=== PATIENT | female | born 1965 | race Caucasian/White ===

== ENCOUNTER 2020-07-20 13:49 | Outpatient (REF) | payer OTHER, SELFPAY | END 2020-07-20 13:50 | disposition home or self-care (01) | LOC: HO.LAB 13:49 | PROVIDERS: Visit Provider Internal Medicine | DX: Z20.828 Contact with and (suspected) exposure to other viral communicable diseases (principal) | CPT/HCPCS: C9803; U0003 ==

== ENCOUNTER 2021-05-30 07:15 | Outpatient (REF) | payer OTHER, SELFPAY | END 2021-05-30 07:16 | disposition home or self-care (01) | LOC: HO.HOSX 07:15 | PROVIDERS: Visit Provider Physician Assistant | DX: Z13.89 Encounter for screening for other disorder (principal) ==

== ENCOUNTER 2021-06-12 08:10 | Outpatient (REF) | payer OTHER, SELFPAY ==
--- NOTE | ~2021-06-12 | XR_ITS ---
EXAMINATION: XR KNEE, RIGHT XR KNEE AP STANDING CLINICAL INFORMATION: Pain. COMPARISON: None TECHNIQUE: Lateral and axial views of the right knee are obtained. AP bilateral standing view of the knees was obtained. FINDINGS: The lateral, medial and patellofemoral joint space compartments of the right knee are well-maintained. There is very mild tricompartment peripheral osteophyte formation. No fracture, dislocation or joint effusion is seen. There is no foreign body. On the frontal view, the lateral and medial joint space compartments of the left knee are well-maintained. A sclerotic, well marginated bone island is noted within the left tibial metaphysis. No significant varus or valgus configuration is seen bilaterally. XR/XR knee RT 2V IMPRESSION: There is very mild tricompartment osteoarthritic change of the right knee. No right knee fracture, dislocation or joint effusion is seen.
--- NOTE | ~2021-06-12 | XR_ITS ---
EXAMINATION: XR KNEE, RIGHT XR KNEE AP STANDING CLINICAL INFORMATION: Pain. COMPARISON: None TECHNIQUE: Lateral and axial views of the right knee are obtained. AP bilateral standing view of the knees was obtained. FINDINGS: The lateral, medial and patellofemoral joint space compartments of the right knee are well-maintained. There is very mild tricompartment peripheral osteophyte formation. No fracture, dislocation or joint effusion is seen. There is no foreign body. On the frontal view, the lateral and medial joint space compartments of the left knee are well-maintained. A sclerotic, well marginated bone island is noted within the left tibial metaphysis. No significant varus or valgus configuration is seen bilaterally. XR/XR knee standing BI IMPRESSION: There is very mild tricompartment osteoarthritic change of the right knee. No right knee fracture, dislocation or joint effusion is seen.
== END 2021-06-12 08:11 | disposition home or self-care (01) ==
LOC: HO.HOSX 08:10
PROVIDERS: Visit Provider Physician Assistant
DX: M17.11 Unilateral primary osteoarthritis, right knee (principal); M25.562 Pain in left knee
CPT/HCPCS: 73560; 73565; 99202

== ENCOUNTER 2022-04-21 09:53 | Outpatient (REF) | payer OTHER, SELFPAY ==
--- NOTE | ~2022-04-21 | XR_ITS ---
EXAMINATION: XR HAND, RIGHT XR HAND, LEFT XR FOOT, RIGHT XR FOOT, LEFT CLINICAL INFORMATION: Pain in hands and feet. COMPARISON: None TECHNIQUE: 3 views each foot. 3 views each hand. FINDINGS: RIGHT HAND: There is mild loss of PIP joint space with periarticular spurring first digit. Minimal loss of PIP joint space fourth and fifth digits is noted as well. Also visualized is mild leftward DIP joint space without periarticular spurring. No bony erosive changes; no acute fracture or dislocation seen. There is bone fragment likely old styloid process fracture. LEFT HAND: Minimal loss of PIP and DIP joint space without periarticular spurring or bony erosive changes. No abnormal joint effusion seen. LEFT FOOT: The ankle mortise and subtalar joints are normal. There are small calcaneal and retrocalcaneal enthesophytes. There is also dorsal intertarsal spurring. Mild focal dorsal soft tissue swelling. No acute fracture, dislocation or subluxation seen. RIGHT FOOT: There is moderate sized calcaneal and a small retrocalcaneal enthesophyte. Minimal dorsal intertarsal spurring is seen. The ankle mortise and subtalar joints are normal. No visible acute fracture, dislocation or subluxation seen. The joint spaces are maintained normal. No soft tissue abnormality. XR/XR foot RT min 3V IMPRESSION: Mild degenerative changes PIP and DIP joints both hands with periarticular spurring first digit right hand. No bony erosive changes, fracture or soft tissue swelling. Unremarkable bilateral foot exam.
--- NOTE | ~2022-04-21 | XR_ITS ---
EXAMINATION: XR HAND, RIGHT XR HAND, LEFT XR FOOT, RIGHT XR FOOT, LEFT CLINICAL INFORMATION: Pain in hands and feet. COMPARISON: None TECHNIQUE: 3 views each foot. 3 views each hand. FINDINGS: RIGHT HAND: There is mild loss of PIP joint space with periarticular spurring first digit. Minimal loss of PIP joint space fourth and fifth digits is noted as well. Also visualized is mild leftward DIP joint space without periarticular spurring. No bony erosive changes; no acute fracture or dislocation seen. There is bone fragment likely old styloid process fracture. LEFT HAND: Minimal loss of PIP and DIP joint space without periarticular spurring or bony erosive changes. No abnormal joint effusion seen. LEFT FOOT: The ankle mortise and subtalar joints are normal. There are small calcaneal and retrocalcaneal enthesophytes. There is also dorsal intertarsal spurring. Mild focal dorsal soft tissue swelling. No acute fracture, dislocation or subluxation seen. RIGHT FOOT: There is moderate sized calcaneal and a small retrocalcaneal enthesophyte. Minimal dorsal intertarsal spurring is seen. The ankle mortise and subtalar joints are normal. No visible acute fracture, dislocation or subluxation seen. The joint spaces are maintained normal. No soft tissue abnormality. XR/XR foot LT min 3V IMPRESSION: Mild degenerative changes PIP and DIP joints both hands with periarticular spurring first digit right hand. No bony erosive changes, fracture or soft tissue swelling. Unremarkable bilateral foot exam.
--- NOTE | ~2022-04-21 | XR_ITS ---
EXAMINATION: XR HAND, RIGHT XR HAND, LEFT XR FOOT, RIGHT XR FOOT, LEFT CLINICAL INFORMATION: Pain in hands and feet. COMPARISON: None TECHNIQUE: 3 views each foot. 3 views each hand. FINDINGS: RIGHT HAND: There is mild loss of PIP joint space with periarticular spurring first digit. Minimal loss of PIP joint space fourth and fifth digits is noted as well. Also visualized is mild leftward DIP joint space without periarticular spurring. No bony erosive changes; no acute fracture or dislocation seen. There is bone fragment likely old styloid process fracture. LEFT HAND: Minimal loss of PIP and DIP joint space without periarticular spurring or bony erosive changes. No abnormal joint effusion seen. LEFT FOOT: The ankle mortise and subtalar joints are normal. There are small calcaneal and retrocalcaneal enthesophytes. There is also dorsal intertarsal spurring. Mild focal dorsal soft tissue swelling. No acute fracture, dislocation or subluxation seen. RIGHT FOOT: There is moderate sized calcaneal and a small retrocalcaneal enthesophyte. Minimal dorsal intertarsal spurring is seen. The ankle mortise and subtalar joints are normal. No visible acute fracture, dislocation or subluxation seen. The joint spaces are maintained normal. No soft tissue abnormality. XR/XR hand RT min 3V IMPRESSION: Mild degenerative changes PIP and DIP joints both hands with periarticular spurring first digit right hand. No bony erosive changes, fracture or soft tissue swelling. Unremarkable bilateral foot exam.
--- NOTE | ~2022-04-21 | XR_ITS ---
EXAMINATION: XR HAND, RIGHT XR HAND, LEFT XR FOOT, RIGHT XR FOOT, LEFT CLINICAL INFORMATION: Pain in hands and feet. COMPARISON: None TECHNIQUE: 3 views each foot. 3 views each hand. FINDINGS: RIGHT HAND: There is mild loss of PIP joint space with periarticular spurring first digit. Minimal loss of PIP joint space fourth and fifth digits is noted as well. Also visualized is mild leftward DIP joint space without periarticular spurring. No bony erosive changes; no acute fracture or dislocation seen. There is bone fragment likely old styloid process fracture. LEFT HAND: Minimal loss of PIP and DIP joint space without periarticular spurring or bony erosive changes. No abnormal joint effusion seen. LEFT FOOT: The ankle mortise and subtalar joints are normal. There are small calcaneal and retrocalcaneal enthesophytes. There is also dorsal intertarsal spurring. Mild focal dorsal soft tissue swelling. No acute fracture, dislocation or subluxation seen. RIGHT FOOT: There is moderate sized calcaneal and a small retrocalcaneal enthesophyte. Minimal dorsal intertarsal spurring is seen. The ankle mortise and subtalar joints are normal. No visible acute fracture, dislocation or subluxation seen. The joint spaces are maintained normal. No soft tissue abnormality. XR/XR hand LT min 3V IMPRESSION: Mild degenerative changes PIP and DIP joints both hands with periarticular spurring first digit right hand. No bony erosive changes, fracture or soft tissue swelling. Unremarkable bilateral foot exam.
[2022-04-21 11:11] LABS: C Reactive Protein 0.24 mg/dL (< or = 0.50); Rheumatoid Factor < 15.0 IU/mL (<15.0)
[2022-04-21 12:07] LABS: Erythrocyte Sedimentation Rate 6 MM/HR (0-20)
[2022-04-23 16:32] LABS: Cyclic Citrullinated Peptide <16 UNITS
== END 2022-04-21 09:54 | disposition home or self-care (01) ==
LOC: HO.10HDL 09:53
PROVIDERS: PCP Internal Medicine; Visit Provider Internal Medicine Rheumatology
DX: M79.641 Pain in right hand (principal); M79.642 Pain in left hand; M79.671 Pain in right foot; M79.672 Pain in left foot; M17.11 Unilateral primary osteoarthritis, right knee
CPT/HCPCS: 36415; 73130; 73630; 85652; 86140; 86200; 86431; 99202

== ENCOUNTER 2022-08-20 09:27 | Outpatient (REF) | payer OTHER, SELFPAY ==
--- NOTE | 2022-08-20 11:35 | MHC.AU.HA1 ---
Hearing Aid Evaluation Date of Visit: 08/20/22 Historical Information: Description of Hearing: Moderately-severe to severe mixed hearing loss in the left ear; Normal hearing in the right ear Summary: Marisabel reported that she has had left-sided hearing loss since about [age] years old. 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 She subsequently had a mastoidectomy and had her adenoids and tonsils removed as well. She never used a hearing aid and has learned to compensate for her hearing loss using communication strategies and environmental modifications. Marisabel is interested in pursuing a hearing aid now due to increased difficulty communicating, especially with masks which interfere with lip reading. She works at [employer] and often needs to ask her coworkers for repetition or sometimes feigns understanding of the conversation. Hearing Aid Prescription: Based on the individual?s shared listening needs, communication environments, dexterity, desire for connectivity, and personal preferences, the following prescription for amplification has been made: Left ear: Make, Model, Color: Phonak Audeo P70-R Battery Size: Liability Claims Examiner/Slim Tube: Type of Earmold/Dome/CShell/SlimTip: Cshell with canal lock Plan of Care: Patient is not interested in pursuing new amplification at this time. Comments: Marisabel would like to apply for financial assistance through [facility] - Gave contact information. If she qualifies for [facility], she will reschedule a hearing aid consultation to confirm the details of the prescribed hearing aid (rechargeable vs battery-powered, color, etc.) and to take an earmold impression. If she does not qualify for [facility], she will reschedule a hearing aid consultation as self-pay if she decides to pursue a hearing aid at that time. Primary Diagnosis: H90.72 Mixed HL, Unilateral, Left Ear, W/Unrestricted Contralateral Signature: Provider: Ragini Lou, [facility]
== END 2022-08-20 09:28 | disposition home or self-care (01) ==
LOC: HO.HAP 09:27
PROVIDERS: Visit Provider Otolaryngology
DX: Z13.89 Encounter for screening for other disorder (principal)

== ENCOUNTER 2022-09-03 14:40 | Outpatient (REF) | payer OTHER, SELFPAY ==
--- NOTE | ~2022-09-03 | MM_ITS ---
EXAMINATION: MM SCREENING DIGITAL BREAST TOMOSYNTHESIS, BILATERAL CLINICAL INFORMATION: Screening. Asymptomatic. The lifetime risk of breast cancer based on the Tyrer-Cuzick Model is 8.8%. COMPARISON: Mammography: December 16, 2018 and studies dating back to August 17, 2013 TECHNIQUE: Digital breast tomosynthesis is performed in both the craniocaudal and mediolateral oblique views along with computer-aided detection (CAD). Synthesized 2D images are generated from the tomosynthesis. FINDINGS: The breasts are almost entirely fatty (ACR BI-RADS breast composition Category a). There are no significant masses, abnormal calcifications, or other abnormalities. MM/MM tomosynthesis screening BI IMPRESSION: No significant changes from prior exam. ASSESSMENT: BI-RADS 1: Negative RECOMMENDATION: Routine annual mammography screening. This patient's information was entered into a reminder system with a target due date for their next mammogram.
== END 2022-09-03 14:41 | disposition home or self-care (01) ==
LOC: HO.MAMMO 14:40
PROVIDERS: PCP Internal Medicine; Visit Provider Internal Medicine
DX: Z12.31 Encounter for screening mammogram for malignant neoplasm of breast (principal)
CPT/HCPCS: 77063; 77067

== ENCOUNTER 2022-10-15 09:22 | Outpatient (REF) | payer OTHER, SELFPAY ==
[2022-10-15 12:16] LABS: Alanine Aminotransferase 22 U/L (0-31); Anion Gap 14 (12-20); Aspartate Amino Transferase 22 U/L (5-31); Blood Urea Nitrogen 14 mg/dL (9-16); Calcium 9.1 mg/dL (8.4-10.2); Carbon Dioxide 24 mmol/L (22-29); Chloride 108 mmol/L (96-108); Cholesterol 228 mg/dL; Estimated Glomerular Filt Rate > 60; Glucose Fasting 84 mg/dL (60-99); HDL Cholesterol 72 mg/dL; LDL Cholesterol Calculated 137 mg/dl; Potassium 4.4 mmol/L (3.3-5.1); Sodium 142 mmol/L (135-145); Triglycerides 95 mg/dL
[2022-10-15 13:43] LABS: Vitamin D 25-OH Total 37.1 ng/mL (>30)
== END 2022-10-15 09:23 | disposition home or self-care (01) ==
LOC: HO.HMGCLDS 09:22
PROVIDERS: Visit Provider Internal Medicine
DX: Z00.01 Encounter for general adult medical examination with abnormal findings (principal); N95.9 Unspecified menopausal and perimenopausal disorder; E78.5 Hyperlipidemia, unspecified
CPT/HCPCS: 36415; 80048; 80061; 82306; 84450; 84460

== ENCOUNTER 2023-03-31 09:28 | Outpatient (AMB) | payer OTHER, SELFPAY ==
--- NOTE | 2023-03-31 09:36 | MHC.PC.OV ---
Vital Signs 03/31/23 09:38 Height 5 ft 2 in Weight 217 lb BMI 39.7 BP 120/80 Blood Pressure Location Rt brachial Position Sitting Pulse 70 Pulse Source Pulse Oximeter Pulse Oximetry (%) 99 Oxygen Delivery Method Room Air Intake Visit Reasons: Back of right knee Cyst Intake Note: Pt is here today c/o back of Rt knee ? cyst Allergies No Known Allergies [No Known Allergies*] Allergy (Verified 09/30/23 11:52) Medication List - Last Reconciled 03/31/23 by Jaquelin Moya MD ascorbic acid (vitamin C) mg PO aspirin (Adult Aspirin Regimen) 81 mg PO DAILY cholecalciferol (vitamin D3) 25 mcg PO DAILY multivitamin 1 tab PO DAILY mutqntv-expc-bppey-oreg-capryl 100 mg-150 mg- 50 mg-150 mg caps PO DAILY Tobacco use date assessed: 03/31/23 Dental Screening Dental Screen Date: 03/31/23 Did you have a dental visit in the last 12 months?: Yes Did you have a dental problem in the last 6 months where you did not have access to dental care?: No Was dental information given to patient?: Patient has dentist HPI Back of right knee Cyst HPI Details 58-year-old lady here today complaining of a lump, which is nontender to palpation on the back of her right knee. This has been present now for the last several months and seems to be getting bigger in size. She is also complaining of progressively worsening right knee pain and has had several instances that her right knee almost gave out while walking. The patient states that she injured her right knee several years ago. . [facility] Medical History (Updated 09/30/23 @ 12:03 by Jaquelin Moya MD) Right knee pain Hyperlipidemia Palpable mass of soft tissue of knee Refused influenza vaccine Masterson's neuroma of both feet Morbid obesity Dyslipidemia Polyarthralgia Catalan's cyst of knee Menorrhagia Carpal tunnel syndrome on both sides Right inguinal hernia Cholelithiasis Varicose vein of leg Injury of muscle or tendon of left rotator cuff Deafness in left ear Foot pain, bilateral Surgical History (Updated 09/30/23 @ 11:56 by Jaquelin Moya MD) History of arthroscopy of right knee H/O hernia repair Deafness in left ear History of prior ablation treatment Hx of cholecystectomy History of tonsillectomy and adenoidectomy History of rotator cuff surgery History of carpal tunnel surgery Family History Father Bladder cancer Lung cancer Mother No problems noted. Brother No problems noted. Brother No problems noted. Son No problems noted. Daughter No problems noted. 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 1. Little interest or pleasure in doing things: not at all 2. Feeling down, depressed, or hopeless: not at all 3. Trouble falling or staying asleep, or sleeping too much: not at all 4. Feeling tired or having little energy: not at all 5. Poor appetite or overeating: not at all 6. Feeling bad about yourself - or that you are a failure or have let yourself or your family down: not at all 7. Trouble concentrating on things, such as reading the newspaper or watching television: not at all 8. Moving or speaking so slowly that other people could have noticed. Or the opposite - being so fidgety or restless that you have been moving around a lot more than usual: not at all 9. Thoughts that you would be better off or of hurting yourself in some way: not at all Total score: 0 Depression Screening Interpretation: Negative 84569 - PHQ-9 Billing: Yes Source: Developed by Drs. Brian Zamora, Alison Story, Cecilio Parker and colleagues, with an educational noemí from [employer]. Thrive Questionnaire Date Thrive assessed: 03/31/23 I am a: Patient What is your living situation today?: I have a steady place to live Within the past 12 months, did the food you bought not last and you didn't have the money to get more?: Never true Within the past 12 months, did you worry whether your food would run out before you got money to buy more?: Never true Do you have trouble paying for medicines?: No Do you have trouble getting transportation to medical appointments?: No Do you have trouble paying your heating and electricity bill?: No Do you have trouble taking care of your child, family member or friend?: No Do you have trouble with day-to-day activities such as bathing, preparing meals, shopping, managing finances, etc.?: No Are you currently unemployed and looking for a job?: No Are you interested in more education?: No AUDIT C Alcohol Use Questionnaire (AUDIT-C) 1. How often do you have a drink containing alcohol?: Never Total Score: 0 ROB-7 AMB Questionnaire ROB-7 Date ROB - 7 assessed: 03/31/23 Feeling nervous, anxious, or on edge: 0 = Not at all Not being able to stop or control worryin = Not at all Worrying too much about different things: 0 = Not at all Trouble relaxin = Not at all Being so restless that it is hard to sit still: 0 = Not at all Becoming easily annoyed or irritable: 0 = Not at all Feeling afraid as if something awful might happen: 0 = Not at all Total ROB-7 score (0-4 normal; 5-9 mild; 10-14 moderate; 15-21 severe): 0 Source: Developed by Drs. Brian Zamora, Alison Story, Cecilio Parker and colleagues, with an educational noemí from [employer]. ROB-7 Assessment Billing ROB-7 Assessment Tool: ROB-7 Assessment 43620 Review of Systems Const All systems reviewed & are unremarkable except as noted in HPI and below Physical exam (Primary Care) Vital Signs: Last Vital Signs Pulse 70 03/31/23 09:38 BP 120/80 03/31/23 09:38 Pulse Ox 99 03/31/23 09:38 Oxygen Delivery Method Room Air 03/31/23 09:38 BMI result Body Mass Index 39.7 Tobacco/Smoking Status: Tobacco use Status Tobacco use date assessed 03/31/23 03/31/23 09:39 Patient Tobacco Use Status Former Tobacco user 03/31/23 09:39 e-Cigarette/Vaping Use Never Used 03/31/23 09:39 PHQ-9: PHQ-9 Score PHQ-9: Total score 0 03/31/23 10:08 Depression Screening Interpretation: Negative Thrive Assessment: Date of Thrive Assessment Date Thrive assessed 03/31/23 03/31/23 10:09 Extrem Other: Palpable lump on posterior aspect of right knee joint, slightly tender to palpation. Assessment and Plan Assessment & Plan (1) Palpable mass of soft tissue of knee: Code(s): M79.89 - Other specified soft tissue disorders Plan: Ultrasound soft tissue of her right knee ordered. Referred to orthopedics for further evaluation management. Coding Level of Care Code Est Pt Level 3 (58486) Diagnoses Palpable mass of soft tissue of knee M79.89 Additional Codes ROB-7 Assessment Billing - ROB-7 Assessment Tool: ROB-7 Assessment 02551 ([id number])
[2023-03-31 09:38] VITALS: BP 120/80; PULSE 70; O2SAT 99; BMI 39.7
== END 2023-03-31 10:06 | disposition home or self-care (01) ==
PROVIDERS: PCP Internal Medicine; Visit Provider Internal Medicine
DX: M79.89 Other specified soft tissue disorders (principal)
CPT/HCPCS: 99213; 99499

== ENCOUNTER 2023-04-02 08:58 | Outpatient (REF) | payer OTHER, SELFPAY ==
--- NOTE | ~2023-04-02 | US_ITS ---
EXAMINATION: US SOFT TISSUES LEG, RIGHT CLINICAL INFORMATION: Firm slightly tender mass medial aspect of right posterior knee increasing in size, question cyst. COMPARISON: None. TECHNIQUE: Targeted ultrasound images were obtained by the director of search engine marketing of the area of concern as indicated by the patient along the medial posterior knee, just below the level of the popliteal fossa. Radiologist was not in attendance. Images were later provided for interpretation. FINDINGS: In the area indicated by the patient along the medial right posterior knee just below the popliteal fossa, there is an approximately 7.8 x 4.7 x 1.9 cm fluid collection with a fine septation. The 7.8 cm sagittal dimension is only an approximation due to large size of this collection. US/US extremity nonvascular gleason IMPRESSION: 7.8 cm fluid collection in the area indicated by the patient along the medial right posterior knee just below the popliteal fossa.
== END 2023-04-02 08:59 | disposition home or self-care (01) ==
LOC: HO.HMGCX 08:58
PROVIDERS: PCP Internal Medicine; Visit Provider Internal Medicine
DX: M79.89 Other specified soft tissue disorders (principal)
CPT/HCPCS: 76882

== ENCOUNTER 2023-04-22 10:12 | Outpatient (REF) | payer OTHER, SELFPAY ==
--- NOTE | ~2023-04-22 | XR_ITS ---
EXAMINATION: XR KNEE, RIGHT CLINICAL INFORMATION: Pain COMPARISON: Right knee x-rays June 12, 2021 TECHNIQUE: Three views of the right knee. FINDINGS: No fracture or dislocation. Trace suprapatellar joint effusion. Joint spaces are well-maintained. Small tricompartmental marginal osteophytes. No focal soft tissue swelling of the anterior knee. XR/XR knee RT 3V IMPRESSION: Mild degenerative changes of the right knee with trace suprapatellar joint effusion.
== END 2023-04-22 10:13 | disposition home or self-care (01) ==
LOC: HO.HOSX 10:12
PROVIDERS: Visit Provider Orthopaedic Surgery
DX: S83.241A Other tear of medial meniscus, current injury, right knee, initial encounter (principal)
CPT/HCPCS: 73562; 99212

== ENCOUNTER 2023-04-22 10:25 | Outpatient (AMB) | payer OTHER, SELFPAY ==
[2023-04-22 10:53] VITALS: BMI 39.7
--- NOTE | 2023-04-22 10:53 | MHC.OFFVIS ---
Intake Vital Signs 04/22/23 10:53 Height 5 ft 2 in Weight 217 lb BMI 39.7 Intake Visit Reasons: OV -Right Knee Pain Intake Note: Marisabel is a 57 year old female who presents today with complaints of progressively worsening right knee pain and giving way. The patient states that she injured her right knee several years ago. She twisted her knee and had acute onset of pain. Since that time her symptoms have gotten worse in spite of continued non operative treatments. She has done physical therapy for 12 weeks over the last 6 months which aggravated her pain. She has had multiple injections. The most recent injection gave her minimal relief. She has also tried Tylenol and anti-inflammatory medicines which gave her minimal relief. She states that her right knee will give out several times per day. Allergies No Known Allergies [No Known Allergies*] Allergy (Verified 03/31/23 09:47) [facility] Medical History (Updated 04/22/23 @ 12:28 by Alhaji Cohen MD) Catalan's cyst of knee Carpal tunnel syndrome on both sides Cholelithiasis Deafness in left ear Dyslipidemia Foot pain, bilateral Injury of muscle or tendon of left rotator cuff Menorrhagia Morbid obesity Masterson's neuroma of both feet Palpable mass of soft tissue of knee Polyarthralgia Refused influenza vaccine Right inguinal hernia Varicose vein of leg Surgical History (Updated 04/22/23 @ 10:58 by Edith Null CMA) Deafness in left ear H/O hernia repair History of carpal tunnel surgery History of prior ablation treatment History of rotator cuff surgery History of tonsillectomy and adenoidectomy Hx of cholecystectomy Family History Father Bladder cancer Lung cancer Mother No problems noted. Brother No problems noted. Brother No problems noted. Son No problems noted. Daughter No problems noted. 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 Cognitive needs: No Hearing needs: Yes Vision needs: Yes Physical Exam Vital Signs: BMI result Body Mass Index 39.7 Const Other: Well-nourished well-developed very friendly female awake alert and oriented x3 in no acute distress Extrem Other: Bilateral lower extremity examination shows good capillary refill, no skin lesions noted, normal sensation light touch Right knee examination shows a minimal effusion, minimal crepitus with range of motion, tenderness along her medial joint line, positive Corey's test, no instability Results Reviewed Results Reviewed: X-rays of the patient's right knee show mild diffuse joint space narrowing, no acute bony abnormalities Assessment & Plan Assessment & Plan (1) Tear of medial meniscus of right knee: Code(s): S83.241A - Other tear of medial meniscus, current injury, right knee, initial encounter Plan: Ms. Miguel presents with progressively worsening right knee pain and mechanical symptoms most likely due to a medial meniscus tear. Thus, I will send the patient for an MRI of her right knee for further evaluation. I will see her back once the MRI is completed to discuss the findings and treatment options. Feel free to call me at any time should questions regarding her orthopedic management arise. Thank you very much for asking me to see this very friendly patient. I spent 22 minutes in reviewing the patient's records and imaging studies, seeing the patient and documenting in the medical record. Orders: Orders XR knee RT 3V Today M25.561 - Pain in right knee MR knee RT wo con Today S83.241A - Other tear of medial meniscus, current injury, right knee, initial encounter Coding Level of Care Code Est Pt Level 2 (94410) Diagnoses Tear of medial meniscus of right knee S83.241A
== END 2023-04-22 11:38 | disposition home or self-care (01) ==
PROVIDERS: PCP Internal Medicine; Visit Provider Orthopaedic Surgery
DX: S83.241A Other tear of medial meniscus, current injury, right knee, initial encounter (principal)
CPT/HCPCS: 99212

== ENCOUNTER 2023-06-17 18:56 | Outpatient (REF) | payer OTHER, SELFPAY ==
--- NOTE | ~2023-06-17 | MR_ITS ---
EXAMINATION: MR KNEE WITHOUT CONTRAST, RIGHT CLINICAL INFORMATION: Right knee pain, swelling, lump/mass. Catalan's cyst. Evaluate for a medial meniscal tear. COMPARISON: Right knee radiographs dated 04/22/2023. TECHNIQUE: MRI of the knee without contrast was performed using routine sequences on a high-field scanner. FINDINGS: MENISCI: Medial Meniscus: Mild fraying of the anterior root. Degenerative intrasubstance signal within the meniscal body and posterior horn. Mild medial extrusion of the meniscal body. Lateral Meniscus: Intact LIGAMENTS: Cruciate: Intact Collateral: Intact EXTENSOR MECHANISM: Intact . ARTICULAR CARTILAGE/BONE: Patellofemoral Compartment: Patellar articular cartilage thinning. Diffuse trochlear articular cartilage thinning with areas of near full-thickness loss at the central and lateral trochlea. Small marginal osteophytes. Medial Compartment: Articular cartilage thinning with signal heterogeneity and surface irregularity. Small marginal osteophytes. Lateral Compartment: Articular cartilage signal heterogeneity with focal near full-thickness loss at the posterior weight-bearing lateral femoral condyle. Tiny marginal osteophytes. JOINT FLUID AND BURSAE: Small joint effusion and small to moderate Catalan's cyst. Loose body within the Catalan's cyst measuring up to 0.5 cm. MR/MR knee RT wo con IMPRESSION: Mild fraying of the medial meniscus anterior root with degenerative intrasubstance signal within the meniscal body and posterior horn. Mild medial extrusion of the meniscal body. Moderate patellofemoral as well as mild medial and lateral compartment osteoarthritis. Small joint effusion and small to moderate Catalan's cyst. Loose body within the Catalan's cyst measuring up to 0.5 cm.
== END 2023-06-17 18:57 | disposition home or self-care (01) ==
LOC: HO.MRI 18:56
PROVIDERS: PCP Internal Medicine; Visit Provider Orthopaedic Surgery
DX: S83.241A Other tear of medial meniscus, current injury, right knee, initial encounter (principal)
CPT/HCPCS: 73721

== ENCOUNTER 2023-06-24 11:30 | Outpatient (AMB) | payer OTHER, SELFPAY ==
[2023-06-24 11:32] VITALS: BMI 39.7
--- NOTE | 2023-06-24 11:32 | A.OFFVIS_ITS ---
Intake Vital Signs 06/24/23 11:32 Height 5 ft 2 in Weight 217 lb BMI 39.7 Intake Visit Reasons: OV-Right knee MRI review Intake Note: Marisabel is a 57 year old female who presents today with complaints of progressively worsening right knee pain and giving way. The patient states that she injured her right knee several years ago. She twisted her knee and had acute onset of pain. Since that time her symptoms have gotten worse in spite of continued non operative treatments. She has done physical therapy for 12 weeks over the last 6 months which aggravated her pain. She has had multiple injections. The most recent injection gave her minimal relief. She has also tried Tylenol and anti-inflammatory medicines which gave her minimal relief. She states that her right knee will give out several times per day. Allergies No Known Allergies [No Known Allergies*] Allergy (Verified 06/24/23 11:33) [facility], LAT[facility] Medical History (Updated 04/22/23 @ 12:28 by Alhaji Cohen MD) Palpable mass of soft tissue of knee Refused influenza vaccine Masterson's neuroma of both feet Morbid obesity Dyslipidemia Polyarthralgia Catalan's cyst of knee Menorrhagia Carpal tunnel syndrome on both sides Right inguinal hernia Cholelithiasis Varicose vein of leg Injury of muscle or tendon of left rotator cuff Deafness in left ear Foot pain, bilateral Surgical History (Updated 04/22/23 @ 10:58 by Edith Null CMA) H/O hernia repair Deafness in left ear History of prior ablation treatment Hx of cholecystectomy History of tonsillectomy and adenoidectomy History of rotator cuff surgery History of carpal tunnel surgery Family History Father Bladder cancer Lung cancer Mother No problems noted. Brother No problems noted. Brother No problems noted. Son No problems noted. Daughter No problems noted. 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 Cognitive needs: No Hearing needs: Yes Vision needs: Yes Physical Exam Vital Signs: BMI result Body Mass Index 39.7 Const Other: Well-nourished well-developed very friendly female awake alert and oriented x3 in no acute distress Extrem Other: Bilateral lower extremity examination shows good capillary refill, no skin lesions noted, normal sensation light touch Right knee examination shows a mild effusion, minimal crepitus with range of motion, tenderness along her medial and lateral joint lines, positive Corey's test, no instability Results Reviewed Results Reviewed: X-rays of the patient's right knee show mild diffuse joint space narrowing, no acute bony abnormalities MRI of the patient's right knee shows mild diffuse degenerative changes, a tear of the medial meniscus, possible tearing of the lateral meniscus Assessment & Plan Assessment & Plan (1) Tear of medial meniscus of right knee: Code(s): S83.241A - Other tear of medial meniscus, current injury, right knee, initial encounter Plan: Ms. Miguel presents with progressively worsening right knee pain and mechanical symptoms due to a tear of her medial meniscus and possible tearing of her lateral meniscus. I had a lengthy discussion with the patient regarding the treatment options. At this point she has failed continued non operative treatments. The risks and benefits of right knee arthroscopic surgery were discussed at length with the patient. The patient wishes to proceed with surgery. Surgery will most likely involve right knee diagnostic arthroscopy with partial medial meniscectomy and possible lateral meniscectomy. The patient does understand that she may not get 100% relief of her symptoms depending on the severity of her degenerative changes. The patient will contact my office to pick a surgery date. She will be given a prescription for pain medicine at the time of her surgery. She will follow-up as instructed. Feel free to call me at any time should questions regarding her orthopedic management arise. I spent 22 minutes in reviewing the patient's records and imaging studies, seeing the patient and documenting in the medical record. Coding Level of Care Code Est Pt Level 2 (72047) Diagnoses Tear of medial meniscus of right knee S83.241A
== END 2023-06-24 12:02 | disposition home or self-care (01) ==
PROVIDERS: PCP Internal Medicine; Visit Provider Orthopaedic Surgery
DX: S83.241A Other tear of medial meniscus, current injury, right knee, initial encounter (principal)
CPT/HCPCS: 99212

== ENCOUNTER → 2023-06-24 11:30 | Outpatient (BNVA) | payer OTHER, SELFPAY | PROVIDERS: PCP Internal Medicine; Visit Provider Orthopaedic Surgery | DX: S83.241A Other tear of medial meniscus, current injury, right knee, initial encounter (principal) | CPT/HCPCS: 99212 ==

== ENCOUNTER 2023-08-07 09:31 | Day surgery (SDC) | payer OTHER, SELFPAY ==
[2023-08-05 08:05] VITALS: BMI 39.7
--- NOTE | 2023-08-06 09:06 | P.CONAN_ITS ---
Documented by User: Bessy Burks NP 08/06/23 09:06 HPI - Anesthesia Eval Consult details Narrative: 57yo F for Right Knee Arthroscopy partial medial meniscectomy, possible lateral meniscectomy PMFSH Active Problems Active Problems: All Active Problems (Updated 04/22/23 @ 12:28 by Alhaji Cohen MD) Tear of medial meniscus of right knee (Acute) Right knee pain (Acute) Palpable mass of soft tissue of knee (Acute) Refused influenza vaccine (Acute) Masterson's neuroma of both feet (Acute) Morbid obesity (Acute) Dyslipidemia (Acute) Bilateral hand pain (Acute) Polyarthralgia (Acute) Tricompartment osteoarthritis of right knee (Acute) Deafness in left ear (Acute) Past Medical History Medical History (Updated 04/22/23 @ 12:28 by Alhaji Cohen MD) Palpable mass of soft tissue of knee Refused influenza vaccine Masterson's neuroma of both feet Morbid obesity Dyslipidemia Polyarthralgia Catalan's cyst of knee Menorrhagia Carpal tunnel syndrome on both sides Right inguinal hernia Cholelithiasis Varicose vein of leg Injury of muscle or tendon of left rotator cuff Deafness in left ear Foot pain, bilateral Family History Family History Father Bladder cancer Lung cancer Mother No problems noted. Brother No problems noted. Brother No problems noted. Son No problems noted. Daughter No problems noted. 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 Cognitive needs: No Hearing needs: Yes Vision needs: Yes Meds Allergies Allergy/AdvReac Type Severity Reaction Status Date / Time No Known Allergies Allergy Verified 08/07/23 09:40 [No Known Allergies*] Active Medications: Current Medications Cefazolin Sodium/Dextrose (Ancef) 2 gm in 50 mls @ 100 mls/hr IV PREOP ONE Stop: 08/07/23 05:21 Home Medications Medication Instructions Recorded Confirmed Last Taken Type ascorbic acid (vitamin C) 500 mg 500 mg PO DAILY 06/20/20 08/07/23 Unknown History capsule aspirin 81 mg tablet,delayed 81 mg PO DAILY 06/20/20 08/07/23 07/31/23 History release (Adult Aspirin Regimen) cholecalciferol (vitamin D3) 25 25 mcg PO DAILY 06/20/20 08/07/23 Unknown History mcg (1,000 unit) capsule multivitamin 1 tab PO DAILY 06/20/20 08/07/23 Unknown History tumeric 100 mg-sajan 150 mg-olive 1 cap PO DAILY 04/21/22 08/07/23 Unknown History 50 mg-oreg 150 mg-caprylate capsule Exam Height,Weight and Vital Signs: Height 5 ft 2 in Weight 98.43 kg Assessment and Plan Assessment Anesthesia Assessment: Chart Reviewed Documented by User: Yo Mace MD 08/07/23 09:49 [facility] Past Medical History Medical History (Updated 04/22/23 @ 12:28 by Alhaji Cohen MD) Palpable mass of soft tissue of knee Refused influenza vaccine Masterson's neuroma of both feet Morbid obesity Dyslipidemia Polyarthralgia Catalan's cyst of knee Menorrhagia Carpal tunnel syndrome on both sides Right inguinal hernia Cholelithiasis Varicose vein of leg Injury of muscle or tendon of left rotator cuff Deafness in left ear Foot pain, bilateral Family History Family History Father Bladder cancer Lung cancer Mother No problems noted. Brother No problems noted. Brother No problems noted. Son No problems noted. Daughter No problems noted. Family history of problems with anesthesia: No 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 Cognitive needs: No Hearing needs: Yes Vision needs: Yes Meds Allergies Allergy/AdvReac Type Severity Reaction Status Date / Time No Known Allergies Allergy Verified 08/07/23 09:40 [No Known Allergies*] Home Medications Medication Instructions Recorded Confirmed Last Taken Type ascorbic acid (vitamin C) 500 mg 500 mg PO DAILY 06/20/20 08/07/23 Unknown History capsule aspirin 81 mg tablet,delayed 81 mg PO DAILY 06/20/20 08/07/23 07/31/23 History release (Adult Aspirin Regimen) cholecalciferol (vitamin D3) 25 25 mcg PO DAILY 06/20/20 08/07/23 Unknown History mcg (1,000 unit) capsule multivitamin 1 tab PO DAILY 06/20/20 08/07/23 Unknown History tumeric 100 mg-sajan 150 mg-olive 1 cap PO DAILY 04/21/22 08/07/23 Unknown History 50 mg-oreg 150 mg-caprylate capsule Exam Airway Mallampati Class: II TM Dist: >3cm Neck ROM: Limited Heart: rrr Lungs: cta Assessment and Plan Assessment Anesthesia Assessment: Anesthesia Plan Discussed Final Anesthetic Review Family History of Problems with Anesthesia: No NPO: Yes ASA Class: III Final Preanesthetic Review: No Changes in Pt Med Stat, Meds/Allgs Chart Reviewed, Consent Obtained/Reviewed and Anes Risks/Benef Reviewed Patient Risk: Intermediate Procedure Risk: Intermediate Anesthetic Plan Anesthetic Plan: GA and Agree w/ Assess. and Plan Disposition: Standard PACU
[2023-08-07] VITALS (11 sets, daily range): BP systolic 110–124; BP diastolic 62–71; PULSE 53–68; RESP 16–18; TEMP 36.1–36.6; O2SAT 98–100; BMI 41.2
[2023-08-07] MEDS: Lactated Ringers 1,000 ML 100 ML IVCONT (10:17)
--- NOTE | 2023-08-07 11:41 | P.BOP_ITS ---
Brief Operative Note Date of Service: 08/07/23 Pre-op diagnosis: Right knee medial meniscus tear, right knee degenerative joint disease Post-op diagnosis: same Procedure: Right knee diagnostic arthroscopy with right knee arthroscopic partial medial meniscectomy, right knee arthroscopic chondroplasty of the undersurface of the patella, right knee arthroscopic plica excision Implants: none Surgeon: Alhaji Cohen MD Anesthesia: GLMA Was an Optician Manager used for this Procedure?: No Estimated blood loss (mL): 10 Pathology: none sent Condition: stable Disposition: PACU
--- NOTE | 2023-08-07 11:42 | W.PM.OPN ---
Operative Note Operative Note Date of Service: 08/07/23 Narrative: After the patient was identified as Marisabel Miguel and their right knee was initialed by myself they were brought to the operating room where general anesthesia was induced by the anesthesiologist in routine fashion. The patient was given 2 g of IV Ancef for infection prophylaxis. A formal time-out was completed. The patient's right lower extremity was prepped and draped in sterile fashion. Marcaine with epinephrine was injected into the planned incision sites as well as their left knee joint. A # 11 scalpel blade was used to make an anterolateral portal 1 cm proximal to the joint line and 1 cm lateral to the patellar tendon. Blunt trocar technique was used into the suprapatellar pouch with the knee in extension. Diagnostic arthroscopy showed multiple bands of thickened plica which would be excised at the end of the procedure. There were no loose bodies or abnormalities found in either the medial or lateral gutters. There were diffuse grades 1 and 2 degenerative changes of the undersurface of the patella as well as grades 1 and 2 degenerative changes of the trochlear groove. The patient's knee was flexed to 45 degrees and a valgus force was placed upon it. The medial compartment was entered. An anteromedial portal was made 1 cm proximal to the joint line and 1 cm medial to the patellar tendon. Probing of the medial meniscus showed a radial tear of the anerior horn. A partial medial meniscectomy was performed using the arthroscopic shaver. Following the partial meniscectomy the remainder of the meniscus tissue was stable. There were diffuse grade 1 degenerative changes of the medial femoral condyle as well as diffuse grade 1 degenerative changes of the medial tibial plateau. The patient's knee was then placed into a neutral position. There was no injury to the anterior cruciate ligament. The patient's knee was then placed into the figure of 4 position and the lateral compartment was entered. There were minimal degenerative changes of the lateral femoral condyle and lateral tibial plateau. There was no evidence of lateral meniscus tearing. The patient's knee was once again brought into extension and the suprapatellar pouch was entered. The arthroscopic shaver and the ArthroCare Wand were used to excise the thickened bands of plica. The undersurface of the patella was then made smooth using the arthroscopic shaver. The articular surface of the trochlear groove was already smooth so no chondroplasty was indicated. The knee joint was irrigated and then drained. All arthroscopic instruments were removed. The 2 portals were closed with 3-0 nylon interrupted suture. The knee joint was injected with Marcaine. Dry sterile dressing and Philippe bandages were placed over the patient's knee. The patient was woken and expand the operating room. They were transferred to the recovery room in stable condition.
[2023-08-07] MEDS: fentaNYL citrate/PF 100 MCG/2 ML VIAL 25 MCG IVPUSH (11:58)
[2023-08-07] MEDS: cefTRIAXone sodium 1 GM in 0.9 % Sodium Chloride 50 ML IV (12:01)
[2023-08-07] MEDS: oxyCODONE HCl Immed Release 5 MG TABLET PO (12:21)
== END 2023-08-07 13:34 | disposition home or self-care (01) ==
PROVIDERS: PCP Internal Medicine; Visit Provider Orthopaedic Surgery
PROC: (CPT 29870; principal; 2023-08-07 11:00)
DX: S83.241A Other tear of medial meniscus, current injury, right knee, initial encounter (principal); M25.361 Other instability, right knee; M17.11 Unilateral primary osteoarthritis, right knee; M67.51 Plica syndrome, right knee; X50.1XXA Overexertion from prolonged static or awkward postures, initial encounter; Y92.9 Unspecified place or not applicable; Y93.9 Activity, unspecified; Y99.8 Other external cause status; E66.01 Morbid (severe) obesity due to excess calories; Z68.39 Body mass index [BMI] 39.0-39.9, adult; E78.5 Hyperlipidemia, unspecified; Z87.891 Personal history of nicotine dependence; Z98.890 Other specified postprocedural states
CPT/HCPCS: 29881; J0131; J0171; J0690; J0696; J1100; J1885; J2405; J2704; J2795; J3010

== ENCOUNTER → 2023-08-07 09:31 | Outpatient (BNV) | payer OTHER, SELFPAY | PROVIDERS: PCP Internal Medicine; Visit Provider Orthopaedic Surgery | DX: S83.231A Complex tear of medial meniscus, current injury, right knee, initial encounter (principal); M17.11 Unilateral primary osteoarthritis, right knee | CPT/HCPCS: 29881 ==

== ENCOUNTER 2023-08-20 14:19 | Outpatient (AMB) | payer OTHER, SELFPAY ==
--- NOTE | 2023-08-20 14:28 | A.OFFVIS_ITS ---
Intake Intake Visit Reasons: PO R Knee 08/07 Intake Note: Marisabel a 58 year old female presents today for a post operative right knee , DOS 08/07/23 . Patient reports she is doing well, states very mild discomfort here and there. Allergies No Known Allergies [No Known Allergies*] Allergy (Verified 08/20/23 14:31) HPI PO R Knee 08/07 HPI Details 58-year-old female who returns to the [facility] today for post-op right knee , 08/07/[address] Cohen. She states she has occasional minimal pain in her knee and is doing well overall. She also reports she has a catalan cyst behind her leg which has increased in size which makes it uncomfortable for her to bend. She has no other concerns today. [facility] Medical History (Updated 04/22/23 @ 12:28 by Alhaji Cohen MD) Palpable mass of soft tissue of knee Refused influenza vaccine Masterson's neuroma of both feet Morbid obesity Dyslipidemia Polyarthralgia Catalan's cyst of knee Menorrhagia Carpal tunnel syndrome on both sides Right inguinal hernia Cholelithiasis Varicose vein of leg Injury of muscle or tendon of left rotator cuff Deafness in left ear Foot pain, bilateral Surgical History H/O hernia repair Deafness in left ear History of prior ablation treatment Hx of cholecystectomy History of tonsillectomy and adenoidectomy History of rotator cuff surgery History of carpal tunnel surgery Family History Father Bladder cancer Lung cancer Mother No problems noted. Brother No problems noted. Brother No problems noted. Son No problems noted. Daughter No problems noted. 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 Incision clean, dry and intact. No erythema or drainage. Rom 0-90 degrees. She is demon good quad control. Calf supple, nontender. NVI. Results Reviewed Results Reviewed: Date of Service: 08/07/23 Pre-op diagnosis: Right knee medial meniscus tear, right knee degenerative joint disease Post-op diagnosis: same Procedure: Right knee diagnostic arthroscopy with right knee arthroscopic partial medial meniscectomy, right knee arthroscopic chondroplasty of the undersurface of the patella, right knee arthroscopic plica excision Implants: none Surgeon: Alhaji Cohen MD Assessment & Plan Assessment & Plan (1) Tear of medial meniscus of right knee: Code(s): S83.241A - Other tear of medial meniscus, current injury, right knee, initial encounter (2) Tricompartment osteoarthritis of right knee: Code(s): M17.11 - Unilateral primary osteoarthritis, right knee Plan Sutures removed today, steri strips applied. We discussed the role of physical therapy in improving her motion which she is interested in. An order for it has been placed and she will work with therapy and transitioned to a home exercises program. I would like to see her back in 4 weeks for a routing follow-up with Dr. Cohen, sooner if needed. Orders: Orders PT Evaluation and Treatment Today M17.11 - Unilateral primary osteoarthritis, right knee, S83.241A - Other tear of medial meniscus, current injury, right knee, initial encounter Patient Instructions: Scribed for Eboni Cox PA-C, by Cristian Alcantara medical radiation therapist, on 08/20/2023 at 2:30 PM EST. IEboni PA-C, have personally reviewed and agree with the information entered by the scribe. Coding Level of Care Code Global (34786) Diagnoses Tear of medial meniscus of right knee S83.241A Tricompartment osteoarthritis of right knee M17.11
== END 2023-08-20 14:52 | disposition home or self-care (01) ==
PROVIDERS: PCP Internal Medicine; Visit Provider Physician Assistant
DX: S83.241A Other tear of medial meniscus, current injury, right knee, initial encounter (principal); M17.11 Unilateral primary osteoarthritis, right knee
CPT/HCPCS: 99024

== ENCOUNTER → 2023-08-20 14:19 | Outpatient (BNVA) | payer OTHER, SELFPAY | PROVIDERS: PCP Internal Medicine; Visit Provider Physician Assistant | DX: Z47.89 Encounter for other orthopedic aftercare (principal); S83.241D Other tear of medial meniscus, current injury, right knee, subsequent encounter; M17.11 Unilateral primary osteoarthritis, right knee; Z98.890 Other specified postprocedural states | CPT/HCPCS: 99212 ==

== ENCOUNTER 2023-08-25 12:54 | Outpatient (REF) | payer OTHER, SELFPAY ==
--- NOTE | 2023-08-25 13:35 | MHC.AU.HA3 ---
Hearing Instrument Follow-Up- Binaural Date of Visit: 08/25/23 Left Ear: Make, Model, Color, Serial Number: Mark Paz [id number] SN: [id number] Color: Graphite [employer] Case Worker Repair Warranty: 09/06/2026 Medical Case Worker Loss and Damage Warranty: 09/06/2026 [facility] Service Plan: 07/29/2024 Battery Size: Rechargeable Pediatric Cns/Slim Tube: 0P Earmold/Dome/CShell/SlimTip: Cshell with skeleton lock SN: [id number] Raheem: 09/08/2023 Type of Wax Guard: CeruStop Dispensed By: [facility] Date of Fittin07/29/2023 Follow-Up Summary: Marisabel reported overall the hearing aid has been great. She is hearing in stereo and notices particular benefit when a speaker is on her left side. For example, in the car, she can hear the medical delivery driver much better when she is a passenger. She has worn the hearing aid to the [employer] concert as well as while listening to the radio and enjoys the sound quality. She has forgotten to put it on a couple of days and has realized how much it actually helps her. There are still certain situations that are too loud (e.g., multiple people at [facility]) and she has taken it out. Data logging showed about 4 hours of use per day. Recommended turning overall volume down instead of taking it out. Did not make any further programming adjustments at this time as Marisabel is otherwise happy with the sound quality. Reviewed cleaning and changing wax guard as well as notifications signals (i.e., low battery warning, volume change) at Marisabel's request. Discussed one year [facility] Service Agreement. Recommendations: Hearing instrument follow-up or maintenance as needed. Please contact our clinic with any questions or concerns. Recommendations (Other): A 6-month clean and check was scheduled on 02/24/2024 Diagnosis Code(s): Primary Diagnosis: H90.72 Mixed HL, Unilateral, Left Ear, W/Unrestricted Contralateral Signature: Provider: Ragini Luo, [facility]
== END 2023-08-25 12:55 | disposition home or self-care (01) ==
LOC: HO.HAP 12:54
PROVIDERS: Visit Provider Internal Medicine
DX: Z13.89 Encounter for screening for other disorder (principal)

== ENCOUNTER 2023-09-03 13:02 | Outpatient (AMB) | payer OTHER, SELFPAY ==
--- NOTE | 2023-09-03 13:06 | MHC.PC.OV ---
Vital Signs 09/03/23 13:08 Height 5 ft 2 in Weight 230 lb BMI 42.1 BP 110/68 Blood Pressure Location Rt brachial Position Sitting Pulse 62 Pulse Source Pulse Oximeter Pulse Oximetry (%) 100 Oxygen Delivery Method Room Air Intake Visit Reasons: Annual PE Rescheduled Intake Note: Pt is here for her Annual PE Allergies No Known Allergies [No Known Allergies*] Allergy (Verified 09/30/23 11:52) Medication List - Last Reconciled 09/03/23 by Jaquelin Moya MD ascorbic acid (vitamin C) 500 mg PO DAILY aspirin (Adult Aspirin Regimen) 81 mg PO DAILY calcium carbonate (Calcium 500) 500 mg PO DAILY cholecalciferol (vitamin D3) 25 mcg PO DAILY multivitamin 1 tab PO DAILY Tobacco use date assessed: 09/03/23 Dental Screening Dental Screen Date: 09/03/23 Did you have a dental visit in the last 12 months?: Yes Did you have a dental problem in the last 6 months where you did not have access to dental care?: No Was dental information given to patient?: Patient has dentist HPI Annual PE Rescheduled HPI Details 58-year-old lady here today for physical exam. She is up-to-date with her screening colonoscopy done in 2018, Negative done by Dr. Leonarod. Last Pap smear was done in 2017, and has already an appointment for her screening mammogram next month. Currently recovering from right total knee arthroscopy 08/07/2023 has a follow-up appointment scheduled with ortho next month. She has been feeling well except for occasional itching inside left ear canal, denies any drainage [facility] Medical History (Updated 09/30/23 @ 12:03 by Jaquelin Moya MD) Right knee pain Hyperlipidemia Palpable mass of soft tissue of knee Refused influenza vaccine Masterson's neuroma of both feet Morbid obesity Dyslipidemia Polyarthralgia Catalan's cyst of knee Menorrhagia Carpal tunnel syndrome on both sides Right inguinal hernia Cholelithiasis Varicose vein of leg Injury of muscle or tendon of left rotator cuff Deafness in left ear Foot pain, bilateral Surgical History (Updated 09/30/23 @ 11:56 by Jaquelin Moya MD) History of arthroscopy of right knee H/O hernia repair Deafness in left ear History of prior ablation treatment Hx of cholecystectomy History of tonsillectomy and adenoidectomy History of rotator cuff surgery History of carpal tunnel surgery Family History Father Bladder cancer Lung cancer Mother No problems noted. Brother No problems noted. Brother No problems noted. Son No problems noted. Daughter No problems noted. 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 1. Little interest or pleasure in doing things: not at all 2. Feeling down, depressed, or hopeless: not at all 3. Trouble falling or staying asleep, or sleeping too much: not at all 4. Feeling tired or having little energy: not at all 5. Poor appetite or overeating: several days 6. Feeling bad about yourself - or that you are a failure or have let yourself or your family down: several days 7. Trouble concentrating on things, such as reading the newspaper or watching television: not at all 8. Moving or speaking so slowly that other people could have noticed. Or the opposite - being so fidgety or restless that you have been moving around a lot more than usual: not at all 9. Thoughts that you would be better off or of hurting yourself in some way: not at all Total score: 2 Depression Screening Interpretation: Negative Depression Screening Done: Yes 50700 - PHQ-9 Billing: Yes Source: Developed by Drs. Brian Zamora, Alison Story, Cecilio Parker and colleagues, with an educational noemí from [employer]. Thrive Questionnaire Date Thrive assessed: 09/03/23 I am a: Patient What is your living situation today?: I have a steady place to live Within the past 12 months, did the food you bought not last and you didn't have the money to get more?: Never true Within the past 12 months, did you worry whether your food would run out before you got money to buy more?: Never true Do you have trouble paying for medicines?: No Do you have trouble getting transportation to medical appointments?: No Do you have trouble paying your heating and electricity bill?: No Do you have trouble taking care of your child, family member or friend?: No Do you have trouble with day-to-day activities such as bathing, preparing meals, shopping, managing finances, etc.?: No Are you currently unemployed and looking for a job?: No AUDIT C Alcohol Use Questionnaire (AUDIT-C) 1. How often do you have a drink containing alcohol?: Monthly or less 3. How often do you have six or more drinks on one occasion?: Never Total Score: 1 ROB-7 AMB Questionnaire ROB-7 Date ROB - 7 assessed: 09/03/23 Feeling nervous, anxious, or on edge: 0 = Not at all Not being able to stop or control worryin = Several days Worrying too much about different things: 1 = Several days Trouble relaxin = Several days Being so restless that it is hard to sit still: 0 = Not at all Becoming easily annoyed or irritable: 0 = Not at all Feeling afraid as if something awful might happen: 0 = Not at all Total ROB-7 score (0-4 normal; 5-9 mild; 10-14 moderate; 15-21 severe): 3 Source: Developed by Drs. Brian Zamora, Alison Story, Cecilio Parker and colleagues, with an educational noemí from [employer]. ROB-7 Assessment Billing ROB-7 Assessment Tool: ROB-7 Assessment 52409 Review of Systems Const Denies fatigue, Denies fever(s), Denies headache(s) and Denies weakness Eyes Denies change in vision ENT Details: chronic hearing loss since childhood. Reports as per HPI, Denies dizziness, Denies headache(s) and Denies nasal congestion Card Denies chest pain and Denies dyspnea Resp Denies chest congestion, Denies cough and Denies dyspnea GI Denies abdominal pain, Denies change in bowel habits and Denies heartburn Denies urinary frequency, Denies dysuria and Denies urinary urgency Musc Reports arthralgias, Denies joint swelling, Denies muscle weakness, Denies numbness, Reports stiffness and Denies tingling Skin/Breast Denies lesions and Denies rash Neuro Denies dizziness, Denies headache(s), Denies numbness, Denies tingling and Denies weakness Psych Reports no additional complaints Endo Denies fatigue, Denies polyphagia, Denies polydipsia and Denies polyuria Gurpreet/Lymph Details: . Denies easy bleeding and Denies easy bruising Aller/Immun Reports no additional complaints Physical exam (Primary Care) Vital Signs: Last Vital Signs Pulse 62 09/03/23 13:08 BP 110/68 09/03/23 13:08 Pulse Ox 100 09/03/23 13:08 Oxygen Delivery Method Room Air 09/03/23 13:08 BMI result Body Mass Index 42.1 BMI Assessment/Plan discussion: High BMI High, discussed plan: lifestyle, weight reduction, dietary and physical activity Tobacco/Smoking Status: Tobacco use Status Tobacco use date assessed 09/03/23 09/03/23 13:13 Patient Tobacco Use Status Former Tobacco user 09/03/23 13:08 Tobacco use type Cigarette 09/03/23 13:08 e-Cigarette/Vaping Use Never Used 09/03/23 13:08 PHQ-9: PHQ-9 Score PHQ-9: Total score 2 09/03/23 13:20 Depression Screening Interpretation: Negative Thrive Assessment: Date of Thrive Assessment Date Thrive assessed 09/03/23 09/03/23 13:20 Const Other: Alert oriented x3, no acute distress, normal gait General: cooperative, healthy appearing, comfortable and no acute distress Nutritional Appearance: obese morbidly obese Orientation/consciousness: patient oriented x3 HENMT Other: Mild erythema in left ear auditory canal noted, no discharge, no cerumen impaction Head: Yes normocephalic and Yes atraumatic Ears: external ears normal, TM's normal bilaterally and hearing grossly impaired General nose exam: Normal external nose present Face and sinus: Yes normal facial exam and Yes face symmetric Mouth: Normal oral and palatal mucosa present, oropharynx normal and moist mucous membranes Eyes General: appearance normal, both eyes and all related structures Neck Neck: Yes full ROM, Yes no lymphadenopathy and Yes supple Thyroid: Thyroid normal Chest Chest palpation & inspection: normal inspection of the chest Breast/axilla inspection: normal inspection of the breasts Breast/axilla palpation: normal palpation of the breasts Resp Effort & Inspection: normal respiratory effort and able to speak in complete sentences Auscultation: clear to auscultation bilaterally Cardio Other: S1-S2 present regular rate and rhythm Rate: regular rate Rhythm: regular rhythm Heart sounds: S1 normal heart sound present and S2 normal heart sound present GI Inspection: Yes obesity Palpation (GI): Soft to palpation, nontender, no guarding and no masses Auscultation: normal bowel sounds General: Yes no CVA tenderness and Yes deferred (declined pelvic exam/pap ) Back/Spine/Pelvis Back: no CVA tenderness and No back tenderness Skin General skin exam: no rashes or lesions noted Neuro General: patient oriented x3, gait normal, tone normal, moves all extremities, Normal light touch and pain sensation, no focal motor deficits and CN's II-XI intact bilaterally Extrem Other: There is no gross bone deformity or joint swelling seen, mild crepitus noted on right knee General: Yes full ROM, Yes no joint enlargement, Yes no clubbing, cyanosis or edema, Yes no calf tenderness and Yes normal gait Psych Appearance: grossly normal and well kempt Mental Status: mental status grossly normal Speech and movement: Normal speech and movement present Affect: normal affect Attitude: cooperative Thought process: Normal thought process present Thought content: Normal thought content present Assessment and Plan Assessment & Plan (1) Annual visit for general adult medical examination with abnormal findings: Code(s): Z00.01 - Encounter for general adult medical examination with abnormal findings Plan: Will check appropriate labs. Recommended dental visit every 6 months and regular eye exams, at least every 2 years. Take adequate calcium in diet and vitamin-D 3 at 2000 IU per cap once a day, in addition to weight-bearing exercises to help maintain good muscle tone and weight control. Instructed to do self-breast exam, and continue with yearly mammogram, has appointment already scheduled for next month. Referred to OBGYN for her routine Pap and pelvic exam, patient declines getting flu vaccine or COVID booster, recommended to get shingles vaccination. Up-to-date with her screening colonoscopy (2) Hyperlipidemia: Code(s): E78.5 - Hyperlipidemia, unspecified Qualifiers: Hyperlipidemia type: pure hypercholesterolemia Qualified Code(s): E78.00 - Pure hypercholesterolemia, unspecified Plan: fasting lipid profile ordered . Continue with adherence to low-cholesterol diet and regular exercise, at least 30 minutes 3 to 4 times a week. Advised patient to make healthy food choices, eat more fruits, vegetables, whole grains, wild caught fish and low-fat dairy. Limit amount of meat and fried or fatty food products, as well as processed foods and fast foods. (3) Refused influenza vaccine: Code(s): Z28.21 - Immunization not carried out because of patient refusal (4) Morbid obesity: Code(s): E66.01 - Morbid (severe) obesity due to excess calories Plan: Discussed need to increase activity and wt reduction. Recommended focusing on improving your health instead of dieting. : Eat Mediterranean diet, limit foods high in fat, sugar, and calories, eat slowly, pay attention to portion sizes, plan your meals ahead of time, start regular physical activity 150 minutes of moderate intensity exercise or 90 minutes/week of vigorous exercise and increase water intake. (5) Deafness in left ear: Code(s): H91.92 - Unspecified hearing loss, left ear (6) Cervical cancer screening: Code(s): Z12.4 - Encounter for screening for malignant neoplasm of cervix Plan: Overdue for her cervical cancer screening, referred to [facility] OBGYN for her routine Pap and pelvic exam (7) Tricompartment osteoarthritis of right knee: Code(s): M17.11 - Unilateral primary osteoarthritis, right knee Plan: Followed by [facility] Orthopedics, status post arthroscopic surgery right knee 08/07/2023 with improvement in pain and range of motion reported (8) Otitis externa of left ear: Code(s): H60.92 - Unspecified otitis externa, left ear Plan: Prescribed szeeolpg-xazuoxthj-WV 3.5-10,000-1 mg/mL-unit/mL-% 4 drps otic (ear) left Q8H PRN 10 mL 0RF otalgia Orders: Orders Lipid Panel 09/03/23 E89.41 - Symptomatic postprocedural ovarian failure, Z00.01 - Encounter for general adult medical examination with abnormal findings, E78.5 - Hyperlipidemia, unspecified, Z28.21 - Immunization not carried out because of patient refusal, E66.01 - Morbid (severe) obesity due to excess calories, H91.92 - Unspecified hearing loss, left ear Glucose Fasting 09/03/23 E89.41 - Symptomatic postprocedural ovarian failure, Z00.01 - Encounter for general adult medical examination with abnormal findings, E78.5 - Hyperlipidemia, unspecified, Z28.21 - Immunization not carried out because of patient refusal, E66.01 - Morbid (severe) obesity due to excess calories, H91.92 - Unspecified hearing loss, left ear Hemoglobin and Hematocrit 09/03/23 E89.41 - Symptomatic postprocedural ovarian failure, Z00.01 - Encounter for general adult medical examination with abnormal findings, E78.5 - Hyperlipidemia, unspecified, Z28.21 - Immunization not carried out because of patient refusal, E66.01 - Morbid (severe) obesity due to excess calories, H91.92 - Unspecified hearing loss, left ear Vitamin D 25-OH Total 09/03/23 E89.41 - Symptomatic postprocedural ovarian failure, Z00.01 - Encounter for general adult medical examination with abnormal findings, E78.5 - Hyperlipidemia, unspecified, Z28.21 - Immunization not carried out because of patient refusal, E66.01 - Morbid (severe) obesity due to excess calories, H91.92 - Unspecified hearing loss, left ear Referrals [employer] Referral Z12.4 - Encounter for screening for malignant neoplasm of cervix Medications: New oaxbmjqf-armnjbqey-SL 3.5-10,000-1 mg/mL-unit/mL-% 4 drps otic (ear) left Q8H PRN 10 mL 0RF otalgia Coding Level of Care Code Est Pt Prev Care 40-64y(87887) Diagnoses Annual visit for general adult medical examination with abnormal findings Z00.01 Pure hypercholesterolemia E78.00 Hyperlipidemia type: pure hypercholesterolemia Refused influenza vaccine Z28.21 Morbid obesity E66.01 Deafness in left ear H91.92 Cervical cancer screening Z12.4 Tricompartment osteoarthritis of right knee M17.11 Otitis externa of left ear H60.92 Additional Codes ROB-7 Assessment Billing - ROB-7 Assessment Tool: ROB-7 Assessment 11907 ([id number])
[2023-09-03 13:08] VITALS: BP 110/68; PULSE 62; O2SAT 100; BMI 42.1
== END 2023-09-03 13:43 | disposition home or self-care (01) ==
PROVIDERS: PCP Internal Medicine; Visit Provider Internal Medicine
DX: Z00.00 Encounter for general adult medical examination without abnormal findings (principal); E66.01 Morbid (severe) obesity due to excess calories; Z68.41 Body mass index [BMI] 40.0-44.9, adult; H60.92 Unspecified otitis externa, left ear; H91.92 Unspecified hearing loss, left ear; M17.11 Unilateral primary osteoarthritis, right knee; E78.00 Pure hypercholesterolemia, unspecified; Z28.21 Immunization not carried out because of patient refusal
CPT/HCPCS: 99213; 99396

== ENCOUNTER 2023-09-09 12:54 | Outpatient (REF) | payer OTHER, SELFPAY | END 2023-09-09 12:55 | disposition home or self-care (01) | LOC: HO.MAMMO 12:54 | PROVIDERS: PCP Internal Medicine; Visit Provider Internal Medicine | DX: Z12.31 Encounter for screening mammogram for malignant neoplasm of breast (principal) | CPT/HCPCS: 77063; 77067 ==

== ENCOUNTER → 2023-09-09 13:00 | Outpatient (BNV) | payer OTHER, SELFPAY | PROVIDERS: PCP Internal Medicine; Visit Provider Radiology Diagnostic Radiology | DX: Z12.31 Encounter for screening mammogram for malignant neoplasm of breast (principal) | CPT/HCPCS: 77063; 77067 ==

== ENCOUNTER 2023-09-17 11:42 | Outpatient (AMB) | payer OTHER, SELFPAY ==
[2023-09-17 12:07] VITALS: BMI 42.1
--- NOTE | 2023-09-17 12:07 | MHC.OFFVIS ---
Intake Vital Signs 09/17/23 12:07 Height 5 ft 2 in Weight 230 lb BMI 42.1 Intake Visit Reasons: P.O - Rt knee 08/07/23 Intake Note: Marisabel is a 58 year old female who presents for her Right knee post procedure 08/07/2023 . The patient reports mild intermittent discomfort in her right knee. She denies any fevers or chills. She is due to return to work over the next few days. Allergies No Known Allergies [No Known Allergies*] Allergy (Verified 09/17/23 12:11) Medication List - Last Reconciled 09/17/23 by Alhaji Cohen MD ascorbic acid (vitamin C) 500 mg PO DAILY aspirin (Adult Aspirin Regimen) 81 mg PO DAILY calcium carbonate (Calcium 500) 500 mg PO DAILY cholecalciferol (vitamin D3) 25 mcg PO DAILY multivitamin 1 tab PO DAILY wdghqzzu-ubyrwsfxl-UU 3.5-10,000-1 mg/mL-unit/mL-% 4 drps otic (ear) left Q8H PRN PFSH Medical History (Updated 09/17/23 @ 12:41 by Alhaji Cohen MD) Right knee pain Hyperlipidemia Palpable mass of soft tissue of knee Refused influenza vaccine Masterson's neuroma of both feet Morbid obesity Dyslipidemia Polyarthralgia Catalan's cyst of knee Menorrhagia Carpal tunnel syndrome on both sides Right inguinal hernia Cholelithiasis Varicose vein of leg Injury of muscle or tendon of left rotator cuff Deafness in left ear Foot pain, bilateral Surgical History H/O hernia repair Deafness in left ear History of prior ablation treatment Hx of cholecystectomy History of tonsillectomy and adenoidectomy History of rotator cuff surgery History of carpal tunnel surgery Family History Father Bladder cancer Lung cancer Mother No problems noted. Brother No problems noted. Brother No problems noted. Son No problems noted. Daughter No problems noted. 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 Miguel continues to do well after undergoing right knee arthroscopic surgery on 08/07/2023. She will gradually progress to activities as tolerated. I discussed with the patient the fact that her discomfort should continue to improve over the next few months. She will contact me prior to her follow-up appointment in 2 months should any questions or concerns arise. Feel free to call me at any time should questions regarding her orthopedic management arise. Coding Level of Care Code Global (41538) Diagnoses Right knee pain M25.561
== END 2023-09-17 12:40 | disposition home or self-care (01) ==
PROVIDERS: PCP Internal Medicine; Visit Provider Orthopaedic Surgery
DX: M25.561 Pain in right knee (principal)
CPT/HCPCS: 99024

== ENCOUNTER → 2023-09-17 11:42 | Outpatient (BNVA) | payer OTHER, SELFPAY | PROVIDERS: PCP Internal Medicine; Visit Provider Orthopaedic Surgery | DX: M25.561 Pain in right knee (principal) | CPT/HCPCS: 99212 ==

== ENCOUNTER 2023-09-28 11:00 | Outpatient (RCR) | payer OTHER, SELFPAY ==
--- NOTE | 2023-09-11 15:32 | MHC.PT.EP ---
[facility] [place] Office [place] Office [place] Office [address] [phone] F: [phone] F: [phone] F: [phone] F: [phone] Physical Therapy Plan of Care Date of Evaluation: 09/11/23 Date of Surgery: 08/07/2023 Diagnosis: s/p R knee arthroscopic surgery Assessment: Pt is a 58-year-old female [employer] employee with PMHx of obesity, poly arthralgia and chronic R knee Catalan's cyst who underwent Right knee diagnostic arthroscopy with right knee arthroscopic partial medial meniscectomy, arthroscopic chondroplasty of the undersurface of the patella, and arthroscopic plica excision performed on 08/07/2023 for management of chronic R knee pain decreased tolerance for descending stairs and curbs, walking and standing for duration, squatting activities, and heavy HH chores secondary to decreased R knee ROM and strength, decreased B hip strength, mild genuvalgum posturing, TTP of anterior, medial and posterior knee, and pain with activity. Pt is deemed an appropriate candidate to receive skilled PT services to address their physical impairments in order to improve their functional ability. Frequency and Duration: The patient will be seen 2x / wk x 4 wks. Short Term Goals: initiate home program. Improve R knee flexion ROM > 125 deg. Mcc Goals: I with home program. Descends 1 fl of stairs with reciprocal fashion w/o compensation. improves LEFI outcome by at least 9 points. Improve R knee ext MMT by at least 1/2 MMT grade; initial 4/5 and painful. Treatment Plan: Modalities to reduce pain, spasms and effusion. Manual therapy to restore motion and function. Therapeutic exercise to improve strength and flexibility. Neuromuscular re-education for posture and balance. Therapeutic activities to return to functional activities of daily living. Electronically signed by: Jadiel Anne PT. Please sign and return to therapist. Thank you for your referral.
--- NOTE | 2023-12-18 07:48 | MHC.PT.DC ---
[facility] [place] Office [place] Office [place] Office [address] Moni Paniagua [address] [phone] F: [phone] F: [phone] F: [phone] F: [phone] Physical Therapy Discharge Report Diagnosis: s/p R knee arthroscopic surgery Date of Surgery: 08/07/2023 Date of Evaluation: 09/11/23 Date of Discharge: 12/18/23 Treatments to Date: 5 Cancellations to Date: No Shows to Date: Discharge Status: Improved Function Independent with HEP Patient Elected to Stop Discharge Summary: Pt cancelled her last 3 apts. Electronically signed by: Jadiel Anne PT. Please sign and return to therapist. Thank you for your referral.
== END 2023-12-18 07:48 | disposition home or self-care (01) ==
LOC: HO.PT 11:00
PROVIDERS: PCP Internal Medicine; Visit Provider Physician Assistant
DX: S83.241D Other tear of medial meniscus, current injury, right knee, subsequent encounter (principal); M17.11 Unilateral primary osteoarthritis, right knee
CPT/HCPCS: 97110; 97140; 97161

== ENCOUNTER 2023-10-13 09:36 | Outpatient (REF) | payer OTHER, SELFPAY ==
[2023-10-13 13:32] LABS: Hematocrit 40.6 % (37.0-47.0); Hemoglobin 13.7 g/dl (12.0-16.0)
[2023-10-13 14:07] LABS: Cholesterol 229 mg/dL (<200); Glucose Fasting 92 mg/dL (60-99); HDL Cholesterol 82 mg/dL (>40); LDL Cholesterol Calculated 130 mg/dL (<100); Triglycerides 85 mg/dL (<150)
[2023-10-13 14:14] LABS: Vitamin D 25-OH Total 54.2 ng/mL (>30)
== END 2023-10-13 09:37 | disposition home or self-care (01) ==
LOC: HO.HMGCLDS 09:36
PROVIDERS: PCP Internal Medicine; Visit Provider Internal Medicine
DX: Z00.01 Encounter for general adult medical examination with abnormal findings (principal)
CPT/HCPCS: 36415; 80061; 82306; 82947; 85014; 85018

== ENCOUNTER 2023-11-04 09:58 | Outpatient (AMB) | payer OTHER, SELFPAY ==
[2023-11-04 10:00] VITALS: BMI 42.1
--- NOTE | 2023-11-04 10:00 | MHC.OFFVIS ---
Intake Vital Signs 11/04/23 10:00 Height 5 ft 2 in Weight 230 lb BMI 42.1 Intake Visit Reasons: OV- Rt knee 08/07/23 Intake Note: Marisabel is a 58 year old female who presents for her Right knee post procedure 08/07/2023 Patient reports her knee is sore, tight and not as strong. She states she is having the most trouble with stairs. The patient states that she has not worked over the last few days and her knee discomfort has improved because she has not been walking stairs. Allergies No Known Allergies [No Known Allergies*] Allergy (Verified 11/04/23 10:06) Medication List - Last Reconciled 11/04/23 by Alhaji Cohen MD ascorbic acid (vitamin C) 500 mg PO DAILY aspirin (Adult Aspirin Regimen) 81 mg PO DAILY calcium carbonate (Calcium 500) 500 mg PO DAILY cholecalciferol (vitamin D3) 25 mcg PO DAILY multivitamin 1 tab PO DAILY ukcyhwmw-zvlcuezjj-QT 3.5-10,000-1 mg/mL-unit/mL-% 4 drps otic (ear) left Q8H PRN PFSH Medical History Right knee pain Hyperlipidemia Palpable mass of soft tissue of knee Refused influenza vaccine Masterson's neuroma of both feet Morbid obesity Dyslipidemia Polyarthralgia Catalan's cyst of knee Menorrhagia Carpal tunnel syndrome on both sides Right inguinal hernia Cholelithiasis Varicose vein of leg Injury of muscle or tendon of left rotator cuff Deafness in left ear Foot pain, bilateral Surgical History History of arthroscopy of right knee H/O hernia repair Deafness in left ear History of prior ablation treatment Hx of cholecystectomy History of tonsillectomy and adenoidectomy History of rotator cuff surgery History of carpal tunnel surgery Family History Father Bladder cancer Lung cancer Mother No problems noted. Brother No problems noted. Brother No problems noted. Son No problems noted. Daughter No problems noted. 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 Miguel continues to do fairly well after undergoing right knee arthroscopic surgery on 08/07/2023. She does have residual discomfort due to patellofemoral degenerative joint disease which is exacerbated by going up and down the stairs at work. I will give the patient a no which will hopefully limit the amount of times that she has to go up and down stairs at work. The patient will continue taking ibuprofen as needed for discomfort. She will contact me prior to her follow-up appointment in 3 months should any questions or concerns arise. Feel free to call me at any time should questions regarding her orthopedic management arise. Coding Level of Care Code Global (00479) Diagnoses Arthritis of right knee M17.11
== END 2023-11-04 10:24 | disposition home or self-care (01) ==
PROVIDERS: PCP Internal Medicine; Visit Provider Orthopaedic Surgery
DX: M17.11 Unilateral primary osteoarthritis, right knee (principal)
CPT/HCPCS: 99024

== ENCOUNTER → 2023-11-04 09:58 | Outpatient (BNVA) | payer OTHER, SELFPAY | PROVIDERS: PCP Internal Medicine; Visit Provider Orthopaedic Surgery | DX: M17.11 Unilateral primary osteoarthritis, right knee (principal) | CPT/HCPCS: 99212 ==

== ENCOUNTER 2023-12-03 10:36 | Outpatient (REF) | payer OTHER, SELFPAY ==
[2023-12-09 03:29] LABS: HPV mRNA E6/E7 rflx Not Detected (Not Detected)
== END 2023-12-03 10:37 | disposition home or self-care (01) ==
LOC: HO.LNP 10:36
PROVIDERS: PCP Internal Medicine; Visit Provider Advanced Practice Midwife
DX: Z01.419 Encounter for gynecological examination (general) (routine) without abnormal findings (principal); Z11.51 Encounter for screening for human papillomavirus (HPV)
CPT/HCPCS: 87624; 88142; 99386

== ENCOUNTER 2023-12-03 10:36 | Outpatient (AMB) | payer OTHER, SELFPAY ==
--- NOTE | 2023-12-03 10:38 | MHC.OFFVIS ---
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 She is doing well with no concerns. Attempting to eat a healthy diet with calcium and vitamin D and stays active with exercise. Currently sexually active. Denies any irritation. Admits to occasional vaginal dryness, not currently using anything to treat per STI testing offered; she declined. Last pap smear; >5yrs. frozen cells >15yrs ago. Last mammogram; 2023 . Colonoscopy is UTD. Denies any family history of breast, ovarian or colon cancer. [facility] Medical History Right knee pain Hyperlipidemia Palpable mass of soft tissue of knee Refused influenza vaccine Masterson's neuroma of both feet Morbid obesity Dyslipidemia Polyarthralgia Ctaalan's cyst of knee Menorrhagia Carpal tunnel syndrome on both sides Right inguinal hernia Cholelithiasis Varicose vein of leg Injury of muscle or tendon of left rotator cuff Deafness in left ear Foot pain, bilateral Surgical History History of arthroscopy of right knee H/O hernia repair Deafness in left ear History of prior ablation treatment Hx of cholecystectomy History of tonsillectomy and adenoidectomy History of rotator cuff surgery History of carpal tunnel surgery Family History Father Bladder cancer Lung cancer Mother No problems noted. Brother No problems noted. Brother No problems noted. Son No problems noted. Daughter No problems noted. 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 Sexually active: Yes Sexual orientation: Straight/Heterosexual Gender identity: Female Cognitive needs: No Hearing needs: Yes Vision needs: Yes Female Reproductive History Menstrual Age of menopause: 52 Total pregnancies: 2 Full term: 2 Number of Living Children: 2 Date of Mammogram: 09/09/23 (Birad 1) Review of Systems Const All systems reviewed & are unremarkable except as noted in HPI and below Reports as per HPI Eyes Reports no additional complaints ENT Reports no additional complaints Card Reports no additional complaints Resp Reports no additional complaints GI Reports as per HPI and Reports no additional complaints Reports as per HPI Musc Reports no additional complaints Skin/Breast Reports as per HPI Neuro Reports no additional complaints Psych Reports no additional complaints Endo Reports no additional complaints Gurpreet/Lymph Reports no additional complaints Aller/Immun Reports no additional complaints Physical Exam Vital Signs: Last Vital Signs BP 112/78 12/03/23 10:39 BMI result Body Mass Index 42.6 Const General: cooperative, healthy appearing, no acute distress, well developed and alert Orientation/consciousness: patient oriented x3 HEENT Head: Yes normal to inspection Eyes General: appearance normal, both eyes and all related structures Neck Neck: Yes normal visual inspection Thyroid: Thyroid normal Chest Chest palpation & inspection: normal inspection of the chest and other (no puckering, dimpling, peau de orange, retraction, discharge, masses) Breast/axilla inspection: normal inspection of the breasts Breast/axilla palpation: normal palpation of the breasts Resp Effort & Inspection: normal respiratory effort GI Inspection: Yes normal to inspection Palpation (GI): Soft to palpation Rectal Exam - Female: deferred General: Yes bladder normal to palpation External Female Exam: normal external appearance and normal appearance of the urethra Speculum Exam - Vagina: normal appearance of the vagina, normal palpation and normal vaginal discharge Speculum Exam - Cervix: normal appearance of the cervix, normal palpation and Other cervical findings present (Bled very slightly with Pap) Bimanual exam- vagina & uterus: normal bimanual exam, normal palpation, uterine size normal, bladder normal to palpation, normal palpation and non-tender Bimanual Exam- Adnexa, other: no masses Skin General skin exam: no rashes or lesions noted Rashes: no rashes Neuro General: patient oriented x3 Cognition (Neuro): normal cognition Extrem General: Yes normal to inspection Psych Attitude: cooperative Thought process: Normal thought process present Assessment & Plan Assessment & Plan (1) Encounter for well woman exam with routine gynecological exam: Code(s): Z01.419 - Encounter for gynecological examination (general) (routine) without abnormal findings Plan Discussed: Current recommendations for pap smears per ASCCP guidelines. Breast awareness, periodic self breast exams and yearly mammogram. Maintain a healthy lifestyle, well balanced diet including Calcium 1,200 mg and Vitamin D 600 IU daily, and routine exercise. Use of vaginal moisturizers such as Replens, and vaginal lubricants example Replens, Nikolai [place], [place] gel. Contact the office with any postmenopausal bleeding. Patient verbalizes understanding and agrees to the plan of care. She was given opportunity to ask questions and all questions were answered to the best of my ability. 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 This note is constructed using voice recognition software. While every effort has been made to ensure accuracy, 3rd mate errors may have been included. Coding Level of Care Code New Pt Prev Care 40-64y(44669) Diagnoses Encounter for well woman exam with routine gynecological exam Z01.419
[2023-12-03 10:39] VITALS: BP 112/78; BMI 42.6
== END 2023-12-03 11:30 | disposition home or self-care (01) ==
PROVIDERS: PCP Internal Medicine; Visit Provider Advanced Practice Midwife
DX: Z01.419 Encounter for gynecological examination (general) (routine) without abnormal findings (principal)
CPT/HCPCS: 99386

== ENCOUNTER 2024-01-13 10:27 | Outpatient (AMB) | payer OTHER, SELFPAY ==
[2024-01-13 10:29] VITALS: BMI 42.6
--- NOTE | 2024-01-13 10:29 | A.OFFVIS_ITS ---
Vital Signs 01/13/24 10:29 Height 5 ft 2 in Weight 233 lb BMI 42.6 Intake Visit Reasons: OV - Rt knee 08/07/23 Intake Note: Marisabel is a 58 year old female who presents for a follow up after her Right knee on 08/07/2024. Patient reports mild intermittent discomfort in her right knee, mostly when she is going up and down stairs. She denies any locking or giving way. She does not take any medicines for discomfort. Allergies No Known Allergies [No Known Allergies*] Allergy (Verified 01/13/24 10:35) Medication List - Last Reconciled 01/13/24 by Alhaji Cohen MD ascorbic acid (vitamin C) 500 mg PO DAILY aspirin (Adult Aspirin Regimen) 81 mg PO DAILY calcium carbonate (Calcium 500) 500 mg PO DAILY cholecalciferol (vitamin D3) 25 mcg PO DAILY multivitamin 1 tab PO DAILY PFS Medical History Right knee pain Hyperlipidemia Palpable mass of soft tissue of knee Refused influenza vaccine Masterson's neuroma of both feet Morbid obesity Dyslipidemia Polyarthralgia Catalan's cyst of knee Menorrhagia Carpal tunnel syndrome on both sides Right inguinal hernia Cholelithiasis Varicose vein of leg Injury of muscle or tendon of left rotator cuff Deafness in left ear Foot pain, bilateral Surgical History History of arthroscopy of right knee H/O hernia repair Deafness in left ear History of prior ablation treatment Hx of cholecystectomy History of tonsillectomy and adenoidectomy History of rotator cuff surgery History of carpal tunnel surgery Family History Father Bladder cancer Lung cancer Mother No problems noted. Brother No problems noted. Brother No problems noted. Son No problems noted. Daughter No problems noted. 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 Sexual orientation: Straight/Heterosexual Gender identity: Female Cognitive needs: No Hearing needs: Yes Vision needs: Yes Physical Exam Vital Signs: BMI result Body Mass Index 42.6 Const Other: Well-nourished well-developed very friendly female awake alert and oriented x3 in no acute distress Extrem Other: Bilateral lower extremity examination shows good capillary refill, no skin lesions noted, normal sensation light touch Right knee examination shows that the surgical incisions are well healed, no erythema, minimal discomfort with range of motion, minimal crepitus with range of motion, negative Corey's test Assessment & Plan Assessment & Plan (1) Arthritis of right knee: Code(s): M17.11 - Unilateral primary osteoarthritis, right knee Category: Medical Plan Ms. Miguel continues to do well after undergoing right knee arthroscopic surgery on 08/07/2023. She does have residual discomfort to early degenerative joint dis ease. Patient will continue with her activity modifications. We will hold off on an injection at this time. She will follow up with me on an as-needed basis should her symptoms worsen in any way. Feel free to call me at any time should questions regarding her orthopedic management arise. I spent 22 minutes in reviewing the patient's records and imaging studies, seeing the patient and documenting in the medical record. Coding Level of Care Code Est Pt Level 2 (77450) Diagnoses Arthritis of right knee M17.11
== END 2024-01-13 10:49 | disposition home or self-care (01) ==
PROVIDERS: PCP Internal Medicine; Visit Provider Orthopaedic Surgery
DX: M17.11 Unilateral primary osteoarthritis, right knee (principal)
CPT/HCPCS: 99213

== ENCOUNTER → 2024-01-13 10:27 | Outpatient (BNVA) | payer OTHER, SELFPAY | PROVIDERS: PCP Internal Medicine; Visit Provider Orthopaedic Surgery | DX: M17.11 Unilateral primary osteoarthritis, right knee (principal) | CPT/HCPCS: 99212 ==

== ENCOUNTER 2024-02-24 13:54 | Outpatient (REF) | payer SELFPAY | END 2024-02-24 13:55 | disposition home or self-care (01) | LOC: HO.HAP 13:54 | PROVIDERS: Visit Provider Internal Medicine | DX: Z13.89 Encounter for screening for other disorder (principal) ==

== ENCOUNTER 2024-04-19 10:42 | Outpatient (AMB) | payer OTHER, SELFPAY ==
--- NOTE | 2024-04-19 10:44 | AM.OFFWIN_ITS ---
Intake Vital Signs 04/19/24 10:45 Height 5 ft 2 in Weight 236 lb BMI 43.2 BP 122/80 Blood Pressure Location Lt radial Position Sitting Pulse 71 Pulse Source Pulse Oximeter Temp 98.2 F Temp Source Oral Pulse Oximetry (%) 98 Oxygen Delivery Method Room Air Intake Visit Reasons: EP- spot on chin, wants it checked Intake Note: pt c/o spot on chin Patient Tobacco Use Status: Former Tobacco user Allergies No Known Allergies [No Known Allergies*] Allergy (Verified 04/19/24 10:45) Do you need a note to return to daycare/school/sports/work: No HPI HPI Comments History of Present Illness Details Patient is a 58-year-old female complaining of a spot on her chin that she would like checked. She states it started out flat and then she messed with it and now it is raised. She states it does not bleed or crust and it is mostly just been the 1 color, white. It does not itch and it is not painful. She states she is worried it is cancer and called her x ray equipment mechanic but they can not see her until July. [facility] Medical History Right knee pain Hyperlipidemia Palpable mass of soft tissue of knee Refused influenza vaccine Masterson's neuroma of both feet Morbid obesity Dyslipidemia Polyarthralgia Catalan's cyst of knee Menorrhagia Carpal tunnel syndrome on both sides Right inguinal hernia Cholelithiasis Varicose vein of leg Injury of muscle or tendon of left rotator cuff Deafness in left ear Foot pain, bilateral Surgical History History of arthroscopy of right knee H/O hernia repair Deafness in left ear History of prior ablation treatment Hx of cholecystectomy History of tonsillectomy and adenoidectomy History of rotator cuff surgery History of carpal tunnel surgery Family History Father Bladder cancer Lung cancer Mother No problems noted. Brother No problems noted. Brother No problems noted. Son No problems noted. Daughter No problems noted. 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 Sexual orientation: Straight/Heterosexual Gender identity: Female Cognitive needs: No Hearing needs: Yes Vision needs: Yes Review of Systems Const All systems reviewed & are unremarkable except as noted in HPI and below Physical Exam Vital Signs: Last Vital Signs Temp 98.2 F 04/19/24 10:45 Pulse 71 04/19/24 10:45 BP 122/80 04/19/24 10:45 Pulse Ox 98 04/19/24 10:45 Oxygen Delivery Method Room Air 04/19/24 10:45 BMI result Body Mass Index 43.2 Const General: cooperative, healthy appearing, comfortable, no acute distress and well developed Orientation/consciousness: patient oriented x3 Limitations: no limitations Eyes General: appearance normal, both eyes and all related structures Resp Effort & Inspection: normal respiratory effort and able to speak in complete sentences Skin Other: 0.25cm oval shaped, raised, white lesion on left side of neck, not crusted, not bleeding, not fluid or purulent filled, no central core. Neuro General: patient oriented x3 Assessment & Plan Assessment & Plan (1) Skin lesion of neck: Code(s): L98.9 - Disorder of the skin and subcutaneous tissue, unspecified Plan: Sent referral to [facility] for patient Orders: Referrals Dermatology Referral L98.9 - Disorder of the skin and subcutaneous tissue, unspecified Coding Level of Care Code Est Pt Level 3 (27844) Diagnoses Skin lesion of neck L98.9
[2024-04-19 10:45] VITALS: BP 122/80; PULSE 71; TEMP 36.8; O2SAT 98; BMI 43.2
== END 2024-04-19 11:45 | disposition home or self-care (01) ==
PROVIDERS: PCP Internal Medicine; Visit Provider Physician Assistant
DX: L98.9 Disorder of the skin and subcutaneous tissue, unspecified (principal)
CPT/HCPCS: 99213

== ENCOUNTER 2024-07-26 12:57 | Outpatient (REF) | payer OTHER, SELFPAY | END 2024-07-26 12:58 | disposition home or self-care (01) | LOC: HO.HAP 12:57 | PROVIDERS: Visit Provider Internal Medicine | DX: Z13.89 Encounter for screening for other disorder (principal) ==

== ENCOUNTER 2024-09-20 14:34 | Outpatient (REF) | payer OTHER, SELFPAY | END 2024-09-20 14:35 | disposition home or self-care (01) | LOC: HO.MAMMO 14:34 | PROVIDERS: PCP Internal Medicine; Visit Provider Internal Medicine | DX: Z12.31 Encounter for screening mammogram for malignant neoplasm of breast (principal) | CPT/HCPCS: 77063; 77067 ==

== ENCOUNTER → 2024-09-20 14:45 | Outpatient (BNV) | payer OTHER, SELFPAY | PROVIDERS: PCP Internal Medicine; Visit Provider Internal Medicine | DX: Z12.31 Encounter for screening mammogram for malignant neoplasm of breast (principal) | CPT/HCPCS: 77063; 77067 ==

== ENCOUNTER 2024-10-19 10:28 | Outpatient (AMB) | payer OTHER, SELFPAY ==
[2024-10-19 10:57] VITALS: BP 108/70; PULSE 72; RESP 15; TEMP 36.7; O2SAT 99; BMI 43.9
--- NOTE | 2024-10-19 10:57 | MHC.PC.OV ---
Vital Signs 10/19/24 10:57 Height 5 ft 2 in Weight 240 lb BMI 43.9 BP 108/70 Blood Pressure Location Rt brachial Position Sitting Respiration 15 Pulse 72 Pulse Source Pulse Oximeter Temp 98.0 F Temp Source Oral Pulse Oximetry (%) 99 Oxygen Delivery Method Room Air Intake Visit Reasons: Annual PE/provider out R/S 09/14/24 Intake Note: Pt is here today for her PE: Last mammogram 09/20/24, papsmear 12/04/23, colonoscopy 01/21/18 Allergies No Known Allergies [No Known Allergies*] Allergy (Verified 10/23/24 22:02) Medication List - Last Reconciled 10/23/24 by Jaquelin Moya MD ascorbic acid (vitamin C) 1,000 mg PO DAILY aspirin (Adult Aspirin Regimen) 81 mg PO DAILY calcium carbonate (Calcium 500) 600 mg PO DAILY cholecalciferol (vitamin D3) 25 mcg PO DAILY multivitamin 1 tab PO DAILY Tobacco use date assessed: 10/19/24 Dental Screening Dental Screen Date: 10/19/24 Did you have a dental visit in the last 12 months?: Yes Did you have a dental problem in the last 6 months where you did not have access to dental care?: No Was dental information given to patient?: Patient has dentist HPI Annual PE/provider out R/S 09/14/24 HPI Details 59-year-old lady here today for physical exam. She is up-to-date with her cervical cancer screening and screening mammogram both of which came back with negative findings. Last colonoscopy was done in 2017, with negative findings, to be repeated again in 2027. She has been feeling well, with no complaints at present time. [facility] Medical History Arthritis of right knee Right knee pain Hyperlipidemia Palpable mass of soft tissue of knee Refused influenza vaccine Masterson's neuroma of both feet Morbid obesity Dyslipidemia Polyarthralgia Catalan's cyst of knee Menorrhagia Carpal tunnel syndrome on both sides Right inguinal hernia Cholelithiasis Varicose vein of leg Injury of muscle or tendon of left rotator cuff Deafness in left ear Foot pain, bilateral Surgical History History of arthroscopy of right knee H/O hernia repair Deafness in left ear History of prior ablation treatment Hx of cholecystectomy History of tonsillectomy and adenoidectomy History of rotator cuff surgery History of carpal tunnel surgery Family History Father Bladder cancer Lung cancer Mother No problems noted. Brother No problems noted. Brother No problems noted. Son No problems noted. Daughter No problems noted. 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 1. Little interest or pleasure in doing things: not at all 2. Feeling down, depressed, or hopeless: not at all 3. Trouble falling or staying asleep, or sleeping too much: not at all 4. Feeling tired or having little energy: not at all 5. Poor appetite or overeating: not at all 6. Feeling bad about yourself - or that you are a failure or have let yourself or your family down: not at all 7. Trouble concentrating on things, such as reading the newspaper or watching television: not at all 8. Moving or speaking so slowly that other people could have noticed. Or the opposite - being so fidgety or restless that you have been moving around a lot more than usual: not at all 9. Thoughts that you would be better off or of hurting yourself in some way: not at all Total score: 0 Depression Screening Interpretation: Negative Depression Screening Done: Yes 43428 - PHQ-9 Billing: Yes Source: Developed by Drs. Brian Zamora, Alison Story, Cecilio Parker and colleagues, with an educational noemí from [employer]. Thrive Questionnaire Date Thrive assessed: 10/06/24 I am a: Patient What is your living situation today?: I have a steady place to live Within the past 12 months, did the food you bought not last and you didn't have the money to get more?: Never true Within the past 12 months, did you worry whether your food would run out before you got money to buy more?: Never true Do you have trouble paying for medicines?: No Do you have trouble getting transportation to medical appointments?: No Do you have trouble paying your heating and electricity bill?: No Do you have trouble taking care of your child, family member or friend?: No Do you have trouble with day-to-day activities such as bathing, preparing meals, shopping, managing finances, etc.?: No Are you currently unemployed and looking for a job?: No Are you interested in more education?: No Please select the resources that you would like help with: None Currently or been in a relationship where the following occur: No concerns reported THRIVE Score: 0 AUDIT C Alcohol Use Questionnaire (AUDIT-C) 1. How often do you have a drink containing alcohol?: Monthly or less 2. How many drinks containing alcohol do you have on a typical day when you are drinking?: 1 or 2 3. How often do you have six or more drinks on one occasion?: Never Total Score: 1 Score Reviewed/Action Taken: No ROB-7 AMB Questionnaire ROB-7 Date ROB - 7 assessed: 10/19/24 Feeling nervous, anxious, or on edge: 0 = Not at all Not being able to stop or control worryin = Not at all Worrying too much about different things: 1 = Several days Trouble relaxin = Not at all Being so restless that it is hard to sit still: 0 = Not at all Becoming easily annoyed or irritable: 0 = Not at all Feeling afraid as if something awful might happen: 0 = Not at all Total ROB-7 score (0-4 normal; 5-9 mild; 10-14 moderate; 15-21 severe): 1 Source: Developed by Drs. Brian Zamora, Alison Story, Cecilio Parker and colleagues, with an educational noemí from [employer] 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 Mcintyre for her yearly skin cancer screen Neuro Reports no additional complaints Psych Reports no additional complaints Endo Reports no additional complaints Gurpreet/Lymph Reports no additional complaints Aller/Immun Reports no additional complaints Physical exam (Primary Care) Vital Signs: Last Vital Signs Temp 98.0 F 10/19/24 10:57 Pulse 72 10/19/24 10:57 Resp 15 10/19/24 10:57 BP 108/70 10/19/24 10:57 Pulse Ox 99 10/19/24 10:57 Oxygen Delivery Method Room Air 10/19/24 10:57 BMI result Body Mass Index 43.9 BMI Assessment/Plan discussion: High BMI High, discussed plan: lifestyle, weight reduction, dietary and physical activity Tobacco/Smoking Status: Tobacco use Status Tobacco use date assessed 10/19/24 10/19/24 11:06 Patient Tobacco Use Status Former Tobacco user 10/19/24 10:57 Tobacco use type Cigarette 10/19/24 10:57 e-Cigarette/Vaping Use Never Used 10/19/24 10:57 PHQ-9: PHQ-9 Score PHQ-9: Total score 0 10/19/24 11:34 Depression Screening Interpretation: Negative Thrive Assessment: Date of Thrive Assessment Date Thrive assessed 10/06/24 10/19/24 10:57 Currently or been in a relationship where the following occur: No concerns reported Const Other: Alert oriented x3, no acute distress, normal gait General: comfortable and no acute distress Nutritional Appearance: obese morbidly obese Orientation/consciousness: patient oriented x3 HENMT Head: Yes normocephalic and Yes atraumatic Ears: external ears normal, TM's normal bilaterally, hearing grossly impaired and other (Has hearing aid in left ear) General nose exam: Normal external nose present Face and sinus: Yes normal facial exam and Yes face symmetric Mouth: Normal oral and palatal mucosa present, oropharynx normal and moist mucous membranes Eyes General: appearance normal, both eyes and all related structures Neck Neck: Yes full ROM, Yes no lymphadenopathy and Yes supple Thyroid: Thyroid normal Chest Chest palpation & inspection: normal inspection of the chest Breast/axilla inspection: normal inspection of the breasts Breast/axilla palpation: normal palpation of the breasts Resp Effort & Inspection: normal respiratory effort and able to speak in complete sentences Auscultation: clear to auscultation bilaterally Cardio Other: S1-S2 present regular rate and rhythm Rate: regular rate Rhythm: regular rhythm Heart sounds: S1 normal heart sound present and S2 normal heart sound present GI Inspection: Yes obesity Palpation (GI): Soft to palpation, nontender, no guarding and no masses Auscultation: normal bowel sounds General: Yes no CVA tenderness and Yes deferred (declined pelvic exam/pap ) Back/Spine/Pelvis Back: no CVA tenderness and No back tenderness Skin General skin exam: no rashes or lesions noted Neuro General: patient oriented x3, gait normal, tone normal, moves all extremities, Normal light touch and pain sensation, no focal motor deficits and CN's II-XI intact bilaterally Extrem General: Yes full ROM, Yes no joint enlargement, Yes no clubbing, cyanosis or edema, Yes no calf tenderness and Yes normal gait Psych Appearance: grossly normal and well kempt Mental Status: mental status grossly normal Speech and movement: Normal speech and movement present Affect: normal affect Attitude: cooperative Thought process: Normal thought process present Thought content: Normal thought content present Coding Level of Care Code Est Pt Prev Care 40-64y(90884) Diagnoses Annual visit for general adult medical examination with abnormal findings Z00.01 Pure hypercholesterolemia E78.00 Hyperlipidemia type: pure hypercholesterolemia Refused influenza vaccine Z28.21 Morbid obesity E66.01 Deafness in left ear H91.92 Additional Codes PHQ-9 - 60560 - PHQ-9 Billing: Yes ([id number]) ROB-7 Assessment Billing - ROB-7 Assessment Tool: ROB-7 Assessment 13765 ([id number]) Assessment & Plan Assessment & Plan (1) Annual visit for general adult medical examination with abnormal findings: Code(s): Z00.01 - Encounter for general adult medical examination with abnormal findings Plan: Will check appropriate labs. Recommended dental visit every 6 months and regular eye exams, at least every 2 years. Take adequate calcium in diet and vitamin-D 3 at 2000 IU per cap once a day, in addition to weight-bearing exercises to help maintain good muscle tone and weight control. Instructed to do self-breast exam, and continue with yearly mammogram, up-to-date with her cervical cancer screen and colonoscopy. Patient does not want to get flu vaccine or COVID booster (2) Hyperlipidemia: Code(s): E78.5 - Hyperlipidemia, unspecified Category: Medical Qualifiers: Hyperlipidemia type: pure hypercholesterolemia Qualified Code(s): E78.00 - Pure hypercholesterolemia, unspecified Plan: Fasting lipid panel ordered (3) Refused influenza vaccine: Code(s): Z28.21 - Immunization not carried out because of patient refusal Category: Medical Plan: Patient declined offer for flu vaccine (4) Morbid obesity: Code(s): E66.01 - Morbid (severe) obesity due to excess calories Category: Medical Plan: Discussed need to increase activity and weight reduction. Recommended focusing on improving health instead of dieting. Mediterranean diet is a healthy diet that helps, limit food high in fat, sugar, and calories. Eat slowly, pay attention to portion sizes, plan your meals ahead of time, start regular physical activity, at least 150 minutes of moderate intensity exercise, or 90 minutes per week of vigorous exercise. Keeping a food diary, tracking what you eat and your physical activity can help assess what improvements you can make. There are many health problems associated with being overweight/obese, so it is important to improve your diet and exercise. There are medications and surgical options available, but Lifestyle changes are the 1st step. (5) Deafness in left ear: Code(s): H91.92 - Unspecified hearing loss, left ear Category: Medical Plan: Has hearing aid in left ear Orders: Orders Vitamin D 25-OH Total 10/19/24 E66.01 - Morbid (severe) obesity due to excess calories, E78.00 - Pure hypercholesterolemia, unspecified, Z00.01 - Encounter for general adult medical examination with abnormal findings, Z13.1 - Encounter for screening for diabetes mellitus, Z28.21 - Immunization not carried out because of patient refusal, Z78.0 - Asymptomatic menopausal state Basic Metabolic Panel Fasting 10/19/24 E66.01 - Morbid (severe) obesity due to excess calories, E78.00 - Pure hypercholesterolemia, unspecified, Z00.01 - Encounter for general adult medical examination with abnormal findings, Z13.1 - Encounter for screening for diabetes mellitus, Z28.21 - Immunization not carried out because of patient refusal, Z78.0 - Asymptomatic menopausal state Glucose Fasting 10/19/24 E66.01 - Morbid (severe) obesity due to excess calories, E78.00 - Pure hypercholesterolemia, unspecified, Z00.01 - Encounter for general adult medical examination with abnormal findings, Z13.1 - Encounter for screening for diabetes mellitus, Z28.21 - Immunization not carried out because of patient refusal, Z78.0 - Asymptomatic menopausal state Lipid Panel 10/19/24 E66.01 - Morbid (severe) obesity due to excess calories, E78.00 - Pure hypercholesterolemia, unspecified, Z00.01 - Encounter for general adult medical examination with abnormal findings, Z13.1 - Encounter for screening for diabetes mellitus, Z28.21 - Immunization not carried out because of patient refusal, Z78.0 - Asymptomatic menopausal state
== END 2024-10-19 11:45 | disposition home or self-care (01) ==
PROVIDERS: PCP Internal Medicine; Visit Provider Internal Medicine
DX: Z00.00 Encounter for general adult medical examination without abnormal findings (principal); E78.00 Pure hypercholesterolemia, unspecified; E66.01 Morbid (severe) obesity due to excess calories; Z68.41 Body mass index [BMI] 40.0-44.9, adult; Z28.21 Immunization not carried out because of patient refusal; H91.92 Unspecified hearing loss, left ear

== ENCOUNTER → 2024-10-19 10:28 | Outpatient (BNVA) | payer OTHER, SELFPAY | PROVIDERS: PCP Internal Medicine; Visit Provider Internal Medicine | DX: Z00.01 Encounter for general adult medical examination with abnormal findings (principal); E78.00 Pure hypercholesterolemia, unspecified; E66.01 Morbid (severe) obesity due to excess calories; H91.92 Unspecified hearing loss, left ear; Z28.21 Immunization not carried out because of patient refusal | CPT/HCPCS: 96127; 99396 ==

== ENCOUNTER 2024-11-24 08:36 | Outpatient (REF) | payer OTHER, SELFPAY ==
[2024-11-24 11:05] LABS: Anion Gap 11 (12-20); Blood Urea Nitrogen 20 mg/dL (9-16); Carbon Dioxide 27 mmol/L (22-29); Chloride 108 mmol/L (96-108); Cholesterol 236 mg/dL (<200); Estimated Glomerular Filt Rate > 60; Glucose Fasting 79 mg/dL (60-99); HDL Cholesterol 78 mg/dL (>40); LDL Cholesterol Calculated 135 mg/dL (<100); Sodium 142 mmol/L (135-145); Triglycerides 118 mg/dL (<150)
[2024-11-24 11:08] LABS: Vitamin D 25-OH Total 46.8 ng/mL (>30)
== END 2024-11-24 08:37 | disposition home or self-care (01) ==
LOC: HO.HMGCLDS 08:36
PROVIDERS: PCP Internal Medicine; Visit Provider Internal Medicine
DX: Z00.01 Encounter for general adult medical examination with abnormal findings (principal); Z13.1 Encounter for screening for diabetes mellitus; E78.00 Pure hypercholesterolemia, unspecified; E66.01 Morbid (severe) obesity due to excess calories; Z78.0 Asymptomatic menopausal state
CPT/HCPCS: 36415; 80048; 80061; 82306

== ENCOUNTER 2024-12-07 12:57 | Outpatient (AMB) | payer OTHER, SELFPAY ==
--- NOTE | 2024-12-07 12:58 | A.OFFVIS_ITS ---
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 She is doing well with freight claim investigator concerns: some decrease in libido, vaginal dryness. Currently sexually active. STI testing offered; she declined. Attempting to eat a healthy diet with calcium and vitamin D and stays active with exercise. Last pap smear; 2023, negative. Last mammogram; 2024. Colonoscopy is UTD. Denies any family history of breast, ovarian or colon cancer. [facility] Medical History Arthritis of right knee Right knee pain Hyperlipidemia Palpable mass of soft tissue of knee Refused influenza vaccine Masterson's neuroma of both feet Morbid obesity Dyslipidemia Polyarthralgia Catalan's cyst of knee Menorrhagia Carpal tunnel syndrome on both sides Right inguinal hernia Cholelithiasis Varicose vein of leg Injury of muscle or tendon of left rotator cuff Deafness in left ear Foot pain, bilateral Surgical History History of arthroscopy of right knee H/O hernia repair Deafness in left ear History of prior ablation treatment Hx of cholecystectomy History of tonsillectomy and adenoidectomy History of rotator cuff surgery History of carpal tunnel surgery Family History Father Bladder cancer Lung cancer Mother No problems noted. Brother No problems noted. Brother No problems noted. Son No problems noted. Daughter No problems noted. 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 Sexual orientation: Straight/Heterosexual Gender identity: Female Cognitive needs: No Hearing needs: Yes Vision needs: Yes Female Reproductive History Menstrual Total pregnancies: 2 Full term: 2 Number of Living Children: 2 Date of last pap smear: 12/03/23 (neg pap and hpv) History of abnormal pap smear: Yes (hx cryo) Date of Mammogram: 09/20/24 (Birad 1) Review of Systems Const All systems reviewed & are unremarkable except as noted in HPI and below Reports as per HPI Eyes Reports no additional complaints ENT Reports no additional complaints Card Reports no additional complaints Resp Reports no additional complaints GI Reports as per HPI and Reports no additional complaints Reports as per HPI Musc Reports no additional complaints Skin/Breast Reports as per HPI Neuro Reports no additional complaints Psych Reports no additional complaints Endo Reports no additional complaints Gurpreet/Lymph Reports no additional complaints Aller/Immun Reports no additional complaints Physical Exam Vital Signs: Last Vital Signs BP 100/64 12/07/24 13:00 BMI result Body Mass Index 43.0 Const General: cooperative, healthy appearing, no acute distress, well developed and alert Orientation/consciousness: patient oriented x3 HEENT Head: Yes normal to inspection Eyes General: appearance normal, both eyes and all related structures Neck Neck: Yes normal visual inspection Thyroid: Thyroid normal Chest Chest palpation & inspection: normal inspection of the chest and other (no puckering, dimpling, peau de orange, retraction, discharge, masses) Breast/axilla inspection: normal inspection of the breasts Breast/axilla palpation: normal palpation of the breasts Resp Effort & Inspection: normal respiratory effort GI Inspection: Yes normal to inspection Palpation (GI): Soft to palpation Rectal Exam - Female: deferred General: Yes bladder normal to palpation External Female Exam: normal external appearance and normal appearance of the urethra Speculum Exam - Vagina: normal appearance of the vagina, normal palpation and normal vaginal discharge Speculum Exam - Cervix: normal appearance of the cervix and normal palpation Bimanual exam- vagina & uterus: normal bimanual exam, normal palpation, uterine size normal, bladder normal to palpation, normal palpation and non-tender Bimanual Exam- Adnexa, other: no masses Skin General skin exam: no rashes or lesions noted Rashes: no rashes Neuro General: patient oriented x3 Cognition (Neuro): normal cognition Extrem General: Yes normal to inspection Psych Attitude: cooperative Thought process: Normal thought process present Assessment & Plan Assessment & Plan (1) Encounter for well woman exam with routine gynecological exam: Code(s): Z01.419 - Encounter for gynecological examination (general) (routine) without abnormal findings Category: Medical Plan Discussed: Current recommendations for pap smears per ASCCP guidelines. Breast awareness, periodic self breast exams and yearly mammogram. Maintain a healthy lifestyle, well balanced diet including Calcium 1,200 mg and Vitamin D 600 IU daily, and routine exercise. Mediterranean diet, calcium information food list, osteopenia prevention handouts provided. Libido concerns, self image, self help, care and counseling options. Replens moisturizers, lubricants. Contact the office with any postmenopausal bleeding. Patient verbalizes understanding and agrees to the plan of care. She was given opportunity to ask questions and all questions were answered to the best of my ability. RTO in 1 year for annual freight claim investigator exam. This note is constructed using voice recognition software. While every effort has been made to ensure accuracy, radio interference trouble shooter errors may have been included. Coding Level of Care Code Est Pt Prev Care 40-64y(28533) Diagnoses Encounter for well woman exam with routine gynecological exam Z01.419
[2024-12-07 13:00] VITALS: BP 100/64; BMI 43.0
== END 2024-12-07 13:40 | disposition home or self-care (01) ==
LOC: HO.HWS 12:57
PROVIDERS: PCP Internal Medicine; Visit Provider Advanced Practice Midwife
DX: Z01.419 Encounter for gynecological examination (general) (routine) without abnormal findings (principal)
CPT/HCPCS: 99396; 99459

== ENCOUNTER → 2024-12-07 12:57 | Outpatient (BNVA) | payer OTHER, SELFPAY | PROVIDERS: PCP Internal Medicine; Visit Provider Advanced Practice Midwife | DX: Z01.419 Encounter for gynecological examination (general) (routine) without abnormal findings (principal) | CPT/HCPCS: 99396; 99459 ==